=== PATIENT | male | born 1955 | race Caucasian/White ===

== ENCOUNTER 2022-12-31 17:01 | Emergency (ER) | payer OTHER ==
--- NOTE | 2022-12-31 17:16 | EDPHYS ---
Physician Documentation [facility] Name: Chris Baker Age: 67 yrs Sex: Male : 1955 Arrival Date: 12/31/2022 Time: 17:01 Bed IW2 Private MD: ED Physician Reyes Ro HPI: 12/31 17:19 This 67 yrs old Male presents to ER via Wheelchair with complaints of Back Pain. ec2 17:17 Patient arrives today due to concern for low back pain. States that he has been having ec2 progressive back pain for the past week and is having issues with mobility. Patient reports no falls or injuries no trauma, no red flag symptoms. States that he has tried without milligrams of Tylenol without significant improvement in his symptoms.. Historical: - Allergies: 17:15 No Known Allergies; cm10 - PMHx: 17:14 Prostate Cacner; Hypertensive disorder; cm10 - PSHx: 17:14 knee replacement; cm10 - Immunization history:: Adult Immunizations unknown. - Social history:: Smoking status: Patient denies any tobacco usage or history of. ROS: 17:17 Constitutional: as per hpi ec2 Exam: 17:17 Constitutional: GEN: NAD Head: atraumatic Eyes: EOMI Ears: External ears are ec2 normal. CV: regular rate LUNGS: no respiratory distress ABD: non-distended SKIN: no evidence of rashes MSK: Bilateral lower lateral back with muscular tenderness palpation without deformities, no C/T/L-spine tenderness palpation or deformities or crepitus appreciated. Bilateral lower extremities with good range of motion. NEURO: moves all extremities equally Vital Signs: 17:10 BP 161 / 80; Pulse 74; Resp 16 S; Temp 98.2; Pulse Ox 100% on R/A; cm10 17:15 Weight 92.99 kg; Height 5 ft. 11 in. ; Pain 10/10; cm10 17:15 Body Mass Index 28.59 (92.99 kg, 180.34 cm) cm10 17:15 Pain Scale: Adult cm10 MDM: 17:06 Patient medically screened. ec2 17:17 Data reviewed: vital signs. ED course: Patient arrives today due to concern for low ec2 back pain. Examination remarkable for well-appearing nontoxic individual was otherwise in no acute distress. I suspect patient's pain is muscular in nature given the reproducible pain on palpation, I have low clinical suspicion for acute bony fracture or spinal cord pathology given the patient's examination. I considered other process such as bony fracture, spinal cord pathology, kidney pathology. Will discharge home, return precautions given. . Administered Medications: 17:22 Drug: Methocarbamol PO 1000 mg PO once Route: PO; cm10 17:23 Follow up: Response: No adverse reaction cm10 Disposition Summary: 12/31/22 17:16 Discharge Ordered Notes: Location: Home ec2 Condition: Stable ec2 Diagnosis - Low back pain ec2 Discharge Instructions: - Discharge Summary Sheet ec2 - Acute Back Pain, Adult ec2 Forms: - Medication Reconciliation Form ec2 - Thank You Letter ec2 - Antibiotic Education ec2 - Prescription Opioid Use ec2 - Patient Portal Instructions ec2 - Leadership Thank You Letter ec2 Prescriptions: - methocarbamol 500 mg Oral tablet - take 2 tablets ORAL route 4 times per day; 30 tablet; Refills: 0, Product ec2 Selection Permitted Signatures: Radha Mejia RN RN cm10 Reyes Ro MD MD ec2
--- NOTE | 2022-12-31 17:16 | ER ---
Nurse's Notes [facility] Name: Chris Baker Age: 67 yrs Sex: Male : 1955 Arrival Date: 12/31/2022 Time: 17:01 Bed IW2 Private MD: Diagnosis: Low back pain Presentation: 12/31 17:10 Chief complaint: Patient states: low back pain onset 1 week ago. Pt states that the cm10 pain has been progressively getting worse. Pt denies any trauma or injury. Coronavirus screen: Vaccine status: Patient reports receiving the 2nd dose of the covid vaccine. Client denies travel out of the [place] in the last 14 days. Ebola Screen: Patient denies travel to an Ebola-affected area in the 21 days before illness onset. No symptoms or risks identified at this time. Initial Sepsis Screen: Does the patient meet any 2 criteria? No. Patient's initial sepsis screen is negative. Does the patient have a suspected source of infection? No. Patient's initial sepsis screen is negative. Risk Assessment: Do you want to hurt yourself or someone else? Patient reports no desire to harm self or others. Onset of symptoms was December 31, 2022. 17:10 Method Of Arrival: Wheelchair cm10 17:10 Acuity: AIMEE 4 cm10 Triage Assessment: 17:14 General: Appears in no apparent distress. comfortable, Behavior is calm, cooperative. cm10 Pain: Complains of pain in low back area Pain does not radiate. EENT: No deficits noted. No signs and/or symptoms were reported regarding the EENT system. Neuro: No deficits noted. Level of Consciousness is awake, alert, obeys commands, Oriented to person, place, time, situation. Cardiovascular: No deficits noted. Patient's skin is warm and dry. Respiratory: No deficits noted. Airway is patent Respiratory effort is even, unlabored, Respiratory pattern is regular, symmetrical. GI: No deficits noted. No signs and/or symptoms were reported involving the gastrointestinal system. : No deficits noted. No signs and/or symptoms were reported regarding the genitourinary system. Derm: No deficits noted. No signs and/or symptoms reported regarding the dermatologic system. Skin is intact, Skin is pink, warm \T\ dry. Musculoskeletal: Range of motion: intact in all extremities, Reports pain in low back area. Historical: - Allergies: 17:15 No Known Allergies; cm10 - PMHx: 17:14 Prostate Cacner; Hypertensive disorder; cm10 - PSHx: 17:14 knee replacement; cm10 - Immunization history:: Adult Immunizations unknown. - Social history:: Smoking status: Patient denies any tobacco usage or history of. Screenin:22 [facility] ED Fall Risk Assessment (Adult) History of falling in the last 3 months, cm10 including since admission No falls in past 3 months (0 pts) Confusion or Disorientation No (0 pts) Intoxicated or Sedated No (0 pts) Impaired Gait Yes (1 pt) Mobility Assist Device Used Yes (1 pt) Altered Elimination No (0 pt) Score/Fall Risk Level 0 - 2 = Low Risk Oriented to surroundings, Maintained a safe environment, Educated pt \T\ family on fall prevention, incl call for assistance when getting out of bed, Provided non-skid footwear, Hourly rounding (assess needs \T\ fall precautionary measures) done. Abuse screen: Denies threats or abuse. Denies injuries from another. Nutritional screening: No deficits noted. Tuberculosis screening: No symptoms or risk factors identified. Vital Signs: 17:10 BP 161 / 80; Pulse 74; Resp 16 S; Temp 98.2; Pulse Ox 100% on R/A; cm10 17:15 Weight 92.99 kg; Height 5 ft. 11 in. ; Pain 10/10; cm10 17:15 Body Mass Index 28.59 (92.99 kg, 180.34 cm) cm10 17:15 Pain Scale: Adult cm10 ED Course: 17:04 Patient arrived in ED. rg4 17:05 Reyes Ro MD is Attending Physician. ec2 17:14 Triage completed. cm10 17:14 Arm band placed on Patient placed in waiting room. cm10 17:22 Patient has correct armband on for positive identification. Provided Education on: ER cm10 process and procedures. . 17:22 No provider procedures requiring assistance completed. Patient did not have IV access cm10 during this emergency room visit. Administered Medications: 17:22 Drug: Methocarbamol PO 1000 mg PO once Route: PO; cm10 17:23 Follow up: Response: No adverse reaction cm10 Medication: 17:22 VIS not applicable for this client. cm10 Outcome: 17:16 Discharge ordered by . ec2 17:22 Discharged to home via wheelchair, with family, 10 17:22 Condition: good 17:22 Discharge instructions given to patient, Instructed on discharge instructions, follow up and referral plans. medication usage, Demonstrated understanding of instructions, follow-up care, medications, Prescriptions given X 1, 17:24 Patient left the ED. cm10 Signatures: Abril Bueno rg4 Rdaha Mejia RN RN cm10 Reyes Ro MD MD ec2
[2022-12-31] MEDS ORDERED: methocarbamoL 500 MG TAB ONE (17:32)
== END 2022-12-31 17:24 | disposition home or self-care (01) ==
LOC: ER 17:01
DX: M54.50 Low back pain, unspecified (principal); I10 Essential (primary) hypertension

== ENCOUNTER 2023-01-03 10:38 | Emergency (ER) | payer OTHER ==
--- OUTSIDE RECORDS SUMMARY | 2023-01-03 10:43 | XMS REPORT | Continuity of Care Document ---
:1955 Author Organization [facility] t Address [address] [place] [address] Care Team Providers Name Role Phone IVA ALYCE NEHA Primary Care Physician Unavailable Joaquin Burgos Attending Clinician Unavailable Enma, Kirti Attending Clinician Unavailable Ethan Naidu Attending Clinician Unavailable Candelaria Cheney Attending Clinician Unavailable Gregg Reyes Attending Clinician Unavailable FAM RICHARD Attending Clinician Unavailable Jovi Frost Attending Clinician Unavailable Lavelle Early Attending Clinician Juan English Attending Clinician Keith Winkler Attending Clinician KNOW, DOES_NOT Admitting Clinician Unavailable Candelaria Cheney Admitting Clinician Unavailable Gregg Reyes Admitting Clinician Unavailable Payers Payer Name Policy Type Policy Number Effective Date Expiration Date Nenita thomas [employer] MEDICARE HMO [id number] 2021 00:00:00 Problems Condition Condition Condition Status Onset Resolution Last Treating Co mments Source Name Details Category Date Date Treatment Clinician Date Homelessne Homelessne Disease Active 2016-03 H arris ss ss 0-02 Health 00:00: 00 H/O H/O Disease Active 2016-03 Naidu alcohol alcohol 0- Health abuse abuse 00:00: 00 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 6-28 Heal th 00:00: 00 Alcohol Alcohol Disease Active Naidu abuse, in abuse, in 5- Heal th remission- remission- 00:00: since since JuneJune -since - imaging imaging study done study done ( ( cirrhosis cirrhosis ) ) Non-smoker Non-smoker Disease Active H arris 5-10 Health 00:00: 00 Alcoholic Alcoholic Disease Active Fredi ris cirrhosis cirrhosis 3-18 Heal of of 00:00: liver-per liver-per 00 imaging imaging Enlarged Enlarged Disease Active Linda urbano prostate prostate 3-18 Health with lower with lower 00:00: urinary urinary 00 tract tract symptoms symptoms (LUTS) (LUTS) Anxiety Anxiety Disease Active Naidu disorder, disorder, 3- Heal unspecifie unspecifie 00:00: d d 00 Alcohol Alcohol Disease Active Naidu use use 05-10 Health disorder, disorder, 00:00: severe, in severe, in 00 early early remission, remission, dependence dependence HYPERTENSI HYPERTENS Diagnosis Active 2013-032014-02-20 Memoria ON ION Active 04-23 10:43:00 l 00:00: Khoi basilio 4 00 [facility] HAND HAND Diagnosis Active 2013-032014-02-18 Mem oria INJURY INJURY 04-20 08:09:00 l Active 07:00: Antonio 02/17/2014 00 [facility] Cocaine Cocaine Disease Active Naidu abuse in abuse in 2- Health remission remission 00:00: 00 ANKLE PAIN ANKLE Diagnosis Active 2011-032012-01-23 Memoria PAIN 1-15 20:28:00 l Active 12:00: Antonio 01/23/2012 00 [facility] Elevated Elevated Disease Active Harri s ferritin ferritin 8-23 Health 00:00: 00 Hypokalemi Hypokalemi Disease Active H arris a a 10-01 Health 00:00: 00 Decreased Decreased Disease Active Fredi ris platelet platelet 10-01 Health count count 00:00: 00 Anemia, Anemia, Disease Active Evangelista unspecifie unspecifie 10-01 He alth d d 00:00: 00 Obesity, Obesity, Disease Active Overview: Arora rris unspecifie unspecifie 10-01 Formattin Health d d 00:00: g of this 00 note might be different from the original. HEALTH MAINTENAN CE MALE Occult Blood (50+ yearly): Cholest (20+ q 5 years): DM Foot: DM Eye: Microalb: Hga1c: Td (adult 11+):2009 outside ppd: Pneumovax adult: Fluzone: Alcohol Alcohol Disease Active Evangelista abuse abuse 10-01 Health 00:00: 00 HTN HTN Disease Active Evangelista (hypertens (hypertens 10-01 He alth ion) ion) 00:00: 00 Family Family Disease Active Evangelista history of history of 10-01 He alth liver liver 00:00: cancer cancer 00 Family Family Disease Active Evangelista history of history of 10-01 He alth diabetes diabetes 00:00: mellitus mellitus 00 type II type II Unspecifie Unspecifie Disease Active H arris d cataract d cataract 10-01 He alth 00:00: 00 Unspecifie Unspecifie Disease Active H arris d dental d dental 10-01 Health caries caries 00:00: 00 Hypertroph Hypertroph Disease Active H arris y of y of 10-01 Health prostate prostate 00:00: without without 00 urinary urinary obstructio obstructio n and n and other other lower lower urinary urinary tract tract symptoms symptoms (LUTS) (LUTS) gastroc gastroc Disease Active Evangelista 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 10-01 He alth right with right with 00:00: evicence evicence 00 of mild of mild neuropathy neuropathy Gout Gout Problem Resolve 2021-12-12 Sebastian weston (disorder) (disorder) d 22:38:58 l Resolved [place] Problem 12/12/2021 Medical [facility] C61 - C61 - Diagnosis Active 2021-07-05 Mem oria MALIGNANT MALIGNANT 07:42:00 l NEOPLASM NEOPLASM Khoi n OF OF PROSTATE PROSTATE Active [facility] History of Past Illness Condition Condition Condition Status Onset Resolution Last Treating Co mments Source Name Details Category Date Date Treatment Clinician Date Discharge Discharge Problem 2013-032014-02-23 2014-02-23 Memoria Diagnosis: Diagnosis: - 22:01:55 22:01:55 l Hypertensi Hypertensi 06:00: He rmann on on 02/20/2014 02/23/2014 [facility] Discharge Discharge Problem 2013-032014-02-17 2014-02-17 Memoria Diagnosis: Diagnosis: 04-17 04:09:31 04:09:31 l Gout Gout 06:00: Antonio 02/14/2014 00 02/17/2014 [facility] Allergies, Adverse Reactions, Alerts Allergy Allergy Status Severity Reaction(s) Onset Inactive Treating Comm ents Source Name Type Date Date Clinician No Known DA Active U 2021-03 [facility] Drug 1-19 Allergie 00:00: s 00 No Known DA Active U 0 [facility] Drug 7- Allergie 00:00: s 00 No Known DA Active U 2020-0 [facility]ie 07-16 [place] [facility] 00:[facility]: [facility] 00 are [facility] No Known DA Active U 2020-0 [facility] Allergie 07-16 [place] [facility] 00:[facility]: [facility] [address] [facility] Family History Family Member Diagnosis Comments Start Date Stop Date Source Natural mother Cancer [facility] Natural mother Diabetes [facility] Natural sister Psychiatry [facility] Natural father Alcohol/Drug [facility] [place] Natural father Unknown Fam [facility] Social History Social Habit Start Date Stop Date Quantity Comments Source Gender identity [facility] Sexual orientation [facility] Alcohol intake 2021-07-04 2021-07-04 Current [facility] 00:00:00 00:00:00 non-drinker of alcohol (finding) History of Social 2020-10-10 2020-10-10 [facility] function 00:00:00 00:00:00 History [facility] 2017-06-23 2017-06-23 5 [facility] h Alcohol Frequency 00:00:00 00:00:00 History [facility] 2017-06-23 2017-06-23 5 [facility] Alcohol Std Drinks 00:00:00 00:00:00 History SDOH 2017-06-23 2017-06-23 5 [facility] Alcohol Binge 00:00:00 00:00:00 Alcohol Comment 2017-06-23 2017-06-23 4-5 6 packs per Danilo is Health 00:00:00 00:00:00 week Stopped alcohol 06/19/17 Social History 2014-02-18 2014-02-18 [facility] 13:44:41 13:44:41 Sex Ass[birth year] Evangelista Turner alth 00:00:00 00:00:00 Smoking Status Start Date Stop Date Source Never smoked tobacco Evangelista Ybarra Social History 2014-02-14 12:04:32 [facility] Medications Ordered Filled Start Stop Current Ordering Indication Dosage Frequency Signature Comments Components Source Medication Medication Date Date Medication? 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 Amlodipine Yes PO, Daily, M emoria 2-21 0 l 20:00: Refill(s) venlafaxine Yes Moderate 75mg QD Take 1 Naidu (EFFEXOR 4-30 episode of capsule by Health XR) 75 mg 00:00: recurrent mouth extended 00 major daily Take release depressive one half capsule disorder tablet for 4 days and then one full tablet for 4 days and then 1.5 tablets thereafter .. levothyroxi Yes Hypothyroid 100ug QD Take 1 Naidu ne 4-30 ism, tablet by Health (SYNTHROID) 00:00: unspecified mouth 100 mcg 00 type every tablet morning (before breakfast) . pravastatin Yes Hyperlipide 20mg Take 1 Naidu (PRAVACHOL) 4-30 sherice, tablet by Hea lth 20 mg 00:00: unspecified mouth at tablet 00 hyperlipide bedtime sherice type nightly. amLODIPine Yes Essential 5mg QD Take 1 Naidu (NORVASC) 5 4-30 hypertensio tablet by Health mg tablet 00:00: n mouth 00 daily. venlafaxine Yes Moderate 75mg QD Take 1 Naidu (EFFEXOR 4-30 episode of capsule by Health XR) 75 mg 00:00: recurrent mouth extended 00 major daily Take release depressive one half capsule disorder tablet for 4 days and then one full tablet for 4 days and then 1.5 tablets thereafter .. levothyroxi Yes Hypothyroid 100ug QD Take 1 Naidu ne 4-30 ism, tablet by Health (SYNTHROID) 00:00: unspecified mouth 100 mcg 00 type every tablet morning (before breakfast) . pravastatin Yes Hyperlipide 20mg Take 1 Naidu (PRAVACHOL) 4-30 sherice, tablet by Hea l[facility] 20 mg 00:00: unspecified mouth at tablet 00 hyperlipide bedtime sherice type nightly. venlafaxine 2017-0 Yes Moderate 75mg QD Take 1 Naidu (EFFEXOR 4-30 episode of capsule by Health XR) 75 mg 00:00: recurrent mouth extended 00 major daily Take release depressive one half capsule disorder tablet for 4 days and then one full tablet for 4 days and then 1.5 tablets thereafter .. levothyroxi Yes Hypothyroid 100ug QD Take 1 Naidu ne 4-30 ism, tablet by Health (SYNTHROID) 00:00: unspecified mouth 100 mcg 00 type every tablet morning (before breakfast) . pravastatin 0 Yes Hyperlipide 20mg Take 1 Naidu (PRAVACHOL) 4-30 sherice, tablet by Hea lth 20 mg 00:00: unspecified mouth at tablet 00 hyperlipide bedtime sherice type nightly. amLODIPine Yes Essential 5mg QD Take 1 Naidu (NORVASC) 5 4-30 hypertensio tablet by Health mg tablet 00:00: n mouth 00 daily. amLODIPine 2018-0 Yes Essential 5mg QD Take 1 Naidu (NORVASC) 5 4-30 hypertensio tablet by Health mg tablet 00:00: n mouth 00 daily. venlafaxine 2018-0 Yes Moderate 75mg QD Take 1 Naidu (EFFEXOR 4-30 episode of capsule by Health XR) 75 mg 00:00: recurrent mouth extended 00 major daily Take release depressive one half capsule disorder tablet for 4 days and then one full tablet for 4 days and then 1.5 tablets thereafter .. levothyroxi 2018-0 Yes Hypothyroid 100ug QD Take 1 Naidu ne 4-30 ism, tablet by [facility] (SYNTHROID) 00:00: unspecified mouth 100 mcg 00 type every tablet morning (before breakfast) . pravastatin 2018-0 Yes Hyperlipide 20mg Take 1 Naidu (PRAVACHOL) 4-30 sherice, tablet by [facility] lt 20 mg 00:00: unspecified mouth at tablet 00 hyperlipide bedtime sherice type nightly. amLODIPine 2018-0 Yes Essential 5mg QD Take 1 Naidu (NORVASC) 5 4-30 hypertensio tablet by [facility] mg tablet 00:00: n mouth 00 daily. lithium 2018-0 Yes Moderate 300mg Q.5D Take 1 Fredi ris carbonate 4-16 episode of capsule by [facility] (ESKALI) 00:00: recurrent mouth 2 300 mg 00 major times capsule depressive daily disorder (with meals) Take one capsule for 4 days and then one capsule bid thereafter . lisinopril 2018-0 Yes Essential 10mg QD Take 1 Naidu (PRINIVIL) 4-16 hypertensio tablet by [facility] 10 mg 00:00: n mouth tablet 00 daily. lithium 2018-0 Yes Moderate 300mg Q.5D Take 1 Fredi ris carbonate 4-16 episode of capsule by [employer] (ESKALI) 00:00: recurrent mouth 2 300 mg 00 major times capsule depressive daily disorder (with meals) Take one capsule for 4 days and then one capsule bid thereafter . lisinopril 2018-0 Yes Essential 10mg QD Take 1 Naidu (PRINIVIL) 4-16 hypertensio tablet by [facility] 10 mg 00:00: n mouth tablet 00 daily. lithium 2018-0 Yes Moderate 300mg Q.5D Take 1 Fredi ris carbonate 4-16 episode of capsule by [employer] (ESKALITH) 00:00: recurrent mouth 2 300 mg 00 major times capsule depressive daily disorder (with meals) Take one capsule for 4 days and then one capsule bid thereafter . lisinopril Yes Essential 10mg QD Take 1 Naidu (PRINIVIL) 4-16 hypertensio tablet by [facility] 10 mg 00:00: n mouth tablet 00 daily. lithium Yes Moderate 300mg Q.5D Take 1 Fredi ris carbonate 4-16 episode of capsule by [facility] ([facility]) 00:00: recurrent mouth 2 300 mg 00 major times capsule depressive daily disorder (with meals) Take one capsule for 4 days and then one capsule bid thereafter . lisinopril Yes Essential 10mg QD Take 1 Naidu (PRINIVIL) 4-16 hypertensio tablet by [facility] 10 mg 00:00: n mouth tablet 00 daily. metoprolol 2013-03 Yes 25 mg = 1 Me moria tartrate 25 2-14 tab, PO, l mg oral 15:59: BID, # 60 Polly nn tablet 00 tab, 0 Refill(s) Amlodipine 2013-03 Yes 5 mg = 1 Mem oria 5 MG Oral 2-14 tab, PO, l Tablet 15:58: Daily, # Antonio [Norvasc] 00 30 tab, 0 Refill(s) Clonidine 2013-03 No Notes: Memori a 2-14 (Same As: l 15:01: Catapres) Amlodipine 2013-03 No Notes: Memor ia 2-14 (Same as: l 13:54: Norvasc) Colchicine 2013-03 Yes 0.6 mg, Sebastian weston 0.6 MG Oral 2-08 PO, Daily, l Tablet 11:48: # 3 caplet, 0 Refill(s) Acetaminoph 2013-03 No Notes: Sebastian weston en 325 MG / 2-08 (Same as: l Hydrocodone 11:46: [place] Polly nn Bitartrate 00 325/5) Do 5 MG Oral not exceed Tablet 4gm/day of acetaminop hen. [place] 5/325 2011-03 Yes [place] D 1-2 tab, Memoria oral tablet 1-16 Jaquan PO, Q4-6H, l 01:58: PRN, 15 [place] 40 tab, Pain, Substituti on Allowed, Maintenanc e Bactrim DS 2011-03 Yes Nayla B 2 tab, PO, Memoria oral tablet 1-16 Ryan BID, 40 l 01:58: Antonio clark 37 Substituti on Allowed, Maintenanc e Ultram 50 2011-03 No Nayla B 50 mg, 1 Memoria mg oral 1-16 Ryan tab, l tablet 01:11: Route: PO, Polly nn 00 Drug form: TAB, ONCE, Dosing Weight 104.545, kg, PRN Pain, Start date: 01/23/12 19:11:00 ibuprofen 2011-03 Yes Substituti Me moria 1-16 on Allowed l 00:41: Antonio 23 naproxen 2011-03 Yes Substituti Mem oria 1-16 on Allowed l 00:41: Antonio 19 Tylenol 2011-03 Yes Substituti Sebastian weston 1-16 on Allowed l 00:41: Antonio 14 Immunizations Ordered Immunization Filled Immunization Date Status Commen ts Source Name Name PPD 2016-12-09 Completed [facility] 00:00:00 PPD 2016-12-09 Completed [facility] 00:00:00 PPD 2016-12-09 Completed [facility] 00:00:00 PPD 2012-05-07 Completed [facility] 00:00:00 PPD 2012-05-07 Completed [facility] 00:00:00 PPD 2012-05-07 Completed [facility] 00:00:00 PPD 2012-05-04 Completed [facility] 00:00:00 PPD 2012-05-04 Completed [facility] 00:00:00 PPD 2012-05-04 Completed [facility] 00:00:00 PPV 23 Pneumococcal 2011-10-02 Completed Antavo Polysaccaride 00:00:00 PPV 23 Pneumococcal 2011-10-02 Completed Antavo Polysaccaride 00:00:00 PPV 23 Pneumococcal 2011-10-02 Completed Antavo Polysaccaride 00:00:00 PPD 2011-04-08 Completed [facility] 00:00:00 PPD 2011-04-08 Completed [facility] 00:00:00 PPD 2011-04-08 Completed [facility] 00:00:00 PPD Unknown Completed [facility] PPV 23 Pneumococcal Unknown Completed Antavo Polysaccaride PPD Unknown Completed [facility] PPD Unknown Completed [facility] PPD Unknown Completed [facility] Vital Signs Vital Name Observation Time Observation Value Comments Source Heart Rate 2021-06-25 13:19:00 [facility] [place] Respitory Rate 2021-06-25 13:19:00 Memori al Antonio Systolic (mm Hg) 2021-06-25 13:19:00 Sebastian rial Antonio Diastolic (mm Hg) 2021-06-25 13:19:00 Mem orial [place] Weight 2021-06-25 13:19:00 [facility] [place] Heart Rate 2021-06-05 14:37:00 [facility] [place] Respitory Rate 2021-06-05 14:37:00 Memori al [place] Systolic (mm Hg) 2021-06-05 14:37:00 Sebastian rial Antonio Diastolic (mm Hg) 2021-06-05 14:37:00 Mem orial [place] Heart Rate 2021-04-30 19:49:00 [facility] [place] Respitory Rate 2021-04-30 19:49:00 Memori al [place] Systolic (mm Hg) 2021-04-30 19:49:00 Sebastian rial [place] Diastolic (mm Hg) 2021-04-30 19:49:00 Mem orial Antonio Height 2021-04-30 19:49:00 172.72 cm [facility] [place] Weight 2021-04-30 19:49:00 [facility] [place] BMI Calculated 2021-04-30 19:49:00 Memori al Antonio Diastolic (mm Hg) 2014-02-20 16:31:00 Mem orial [place] Heart Rate 2014-02-20 16:31:00 [facility] Antonio Systolic (mm Hg) 2014-02-20 16:31:00 Sebastian rial Antonio Respitory Rate 2014-02-20 15:52:00 Memori al [place] Systolic (mm Hg) 2014-02-20 15:52:00 Sebastian rial [place] Diastolic (mm Hg) 2014-02-20 15:52:00 Mem orial [place] Heart Rate 2014-02-20 15:52:00 [facility] [place] Heart Rate 2014-02-20 15:08:00 [facility] [place] Systolic (mm Hg) 2014-02-20 15:08:00 Sebastian rial Antonio Diastolic (mm Hg) 2014-02-20 15:08:00 Mem orial [place] BMI Calculated 2014-02-20 13:30:00 Memori al Antonio Weight 2014-02-20 13:30:00 [facility] [place] Height 2014-02-20 13:30:00 177.8 cm [facility] [place] Temperature Oral (F) 2014-02-20 13:30:00 97.7 F [facility] [place] Respitory Rate 2014-02-20 13:30:00 Memori al Antonio Respitory Rate 2014-02-20 13:19:00 Memori al [place] Temperature Oral (F) 2014-02-20 13:19:00 98.4 F [facility] [place] Height 2014-02-14 11:29:00 180.34 cm [facility] [place] Weight 2014-02-14 11:29:00 [facility] [place] BMI Calculated 2014-02-14 11:29:00 Memori al [place] Systolic (mm Hg) 2014-02-14 11:29:00 Sebastian rial Antonio Heart Rate 2014-02-14 11:29:00 [facility] [place] Diastolic (mm Hg) 2014-02-14 11:29:00 Mem orial Antonio Respitory Rate 2014-02-14 11:29:00 Memori al [place] Temperature Oral (F) 2014-02-14 11:29:00 97.7 F [facility] [place] Height 2012-01-23 23:22:00 172.72 cm [facility] [place] Weight 2012-01-23 23:22:00 [facility] Procedures Procedure Date / Time Performing Clinician Source Performed [id number] 2022-08-15 00:00:00 IND[facility] Biopsy, prostate; 2021-06-05 15:15[facility] or multiple, any approach Measurement of 2021-04-30 20:07:00 [facility] post-voiding residual urine and/or bladder capacity by ultrasound, non-imaging Hernia repair [facility] Plan of Care Planned Activity Planned Date Details Comments Source Future Scheduled Test 2022-12-08 IMM Influenza Seasonal [facility] 00:00:00 (>/= 19 yrs) [code = IMM Influenza Seasonal (>/= 19 yrs)] Future Scheduled Test 2022-11-08 IMM Influenza Seasonal [facility] 00:00:00 (>/= 19 yrs) [code = IMM Influenza Seasonal (>/= 19 yrs)] Future Scheduled Test 2021-12-08 IMM Influenza Seasonal [facility] 00:00:00 (>/= 19 yrs) [code = IMM Influenza Seasonal (>/= 19 yrs)] Future Scheduled Test 2021-12-08 IMM Influenza Seasonal [facility] 00:00:00 (>/= 19 yrs) [code = IMM Influenza Seasonal (>/= 19 yrs)] Future Scheduled Test 2018 Imm Pneumococcal 65+ (2 [facility] 00:00:00 - PCV) [code = Imm Pneumococcal 65+ (2 - PCV)] Future Scheduled Test 2016-05-10 Screening for malignant [facility] 00:00:00 neoplasm of colon (procedure) [code = 451200708] Future Scheduled Test 2016-05-10 Screening for malignant [facility] 00:00:00 neoplasm of colon (procedure) [code = 094819302] Future Scheduled Test 2016-05-10 Screening for malignant [facility] 00:00:00 neoplasm of colon (procedure) [code = 439526714] Future Scheduled Test 2016-05-10 Screening for malignant [facility] 00:00:00 neoplasm of colon (procedure) [code = 050038281] Future Scheduled Test 2012-10-01 Imm Pneumococcal 65+ (2 [facility] 00:00:00 - PCV) [code = Imm Pneumococcal 65+ (2 - PCV)] Future Scheduled Test 2012-10-01 Imm Pneumococcal 65+ (2 [facility] 00:00:00 - PCV) [code = Imm Pneumococcal 65+ (2 - PCV)] Future Scheduled Test 2012-10-01 Imm Pneumococcal 65+ (2 [facility] 00:00:00 - PCV) [code = Imm Pneumococcal 65+ (2 - PCV)] Future Scheduled Test 1955 COVID-19 Vaccine (#1) [facility] 00:00:00 [code = COVID-19 Vaccine (#1)] Future Scheduled Test 1955 COVID-19 Vaccine (#1) [facility] 00:00:00 [code = COVID-19 Vaccine (#1)] Future Scheduled Test 1955 COVID-19 Vaccine (#1) [facility] 00:00:00 [code = COVID-19 Vaccine (#1)] Future Scheduled Test 1955 COVID-19 Vaccine (#1) [facility] 00:00:00 [code = COVID-19 Vaccine (#1)] Future Scheduled Test 1955 Fluoride Varnish [code [facility] 00:00:00 = Fluoride Varnish] Encounters Start End Encounter Admission Attending Care Care Encounter Source Date/Time Date/Time Type Type Clinicians Facility Department ID 2022-10-16 Outpatient [facility] [id number] Common 16:37:01 [id number] [facility] 2022-07-02 Outpatient [facility] [id number] [place] 14:40:14 [id number] [facility] 2022-06-18 Outpatient [facility] [id number] [place] 12:44:27 [id number] [facility] 2022-05-29 Inpatient TRACY Burgos YENPM EDA [id number] [facility] 14:00:[address] 2022-05-10 Inpatient Elective [place], Kirti [facility] [id number] [facility] 09:00:00 00 2021-09-27 Inpatient Elective Naidu, [facility] [id number] [facility] 08:00:00 Ethan 08 2021-01-08 Inpatient Naidu, [facility] [id number] [facility] 10:00:00 Ethan 49 2020-12-04 Inpatient Naidu, [facility] [id number] [facility] 10:00:00 Ethan 93 2020-07-16 Inpatient HCANC HCANC [id number] [facility] 11:45:24 13 [facility] 2020-01-08 Inpatient 3 Shravan, [facility] [id number] [facility] 21:00:03 [facility] 2022-08-15 2022-08-22 Inpatient TRACY Reyes [facility] [id number] [facility] 14:52:00 17:02:00 Gregg Roberto [facility] 2022-08-12 2022-08-12 Outpatient AubreyYENNW REF [id number] [facility] 14:03:00 14:03:00 Joaquin 14 [facility] 2022-07-03 2022-07-03 Outpatient JOSE MANUELFAM [facility] [id number] [place] 08:30:00 08:30:00 [facility] 2022-05-16 2022-05-16 Outpatient Elective Evangelista [facility] [id number] 10:33:00 10:34:00 Ethan 12 2022-01-26 2022-01-26 Emergency Emergency Guirges, [facility] [id number] [facility] 19:13:00 22:45:00 Jovi 54 2022-01-26 2022-01-26 Emergency [facility] [id number] [facility] 19:13:00 19:13:00 54 2022-01-23 2022-01-24 Outpatient Elective [place], Kirti [facility] [id number] [facility] 09:45:00 07:20:00 41 2022-01-07 2022-01-07 Outpatient Elective [place], Kirti [facility] [id number] [facility] 10:30:00 23:59:00 19 2021-12-13 2021-12-13 Outpatient Elective [place], Kirti [facility] [id number] [facility] 11:46:00 11:47:00 98 2021-12-10 2021-12-10 Ambulatory nullFlavo [facility] [id number] Memoria 19:15:00 19:15:00 Pre-Reg r Urology 06 l [facility] 2021-12-10 2021-12-10 Outpatient MHIE BROOKS [facility] [id number] Memoria 14:15:00 14:15:00 06 harriett [place] 2021-12-10 2021-12-10 Outpatient Lavelle Early [facility] [id number] 14:15:00 14:15:00 S 06 2021-11-22 2021-12-07 Outpatient Elective Nor[place], Kirti [facility] JM0 [id number] [facility] 11:30:00 23:59:00 97 2021-11-09 2021-11-09 Outpatient [facility] [id number] [facility] 11:30:00 11:30:00 97 2021-11-06 2021-11-07 Outpatient Elective [place], Kirti [facility] JM0 [id number] [facility] 11:30:00 23:59:00 11 2021-10-04 2021-10-04 Outpatient Elective Naidu, [facility] [id number] [facility] 06:22:00 20:49:00 Ethan 95 2021-10-04 2021-10-04 Outpatient Elective Naidu, [facility] [id number] [facility] 06:22:00 06:22:00 Ethan 95 2021-09-28 2021-09-28 Outpatient Elective Naidu, [facility] [id number] [facility] 11:11:00 11:12:00 Ethan 87 2021-09-28 2021-09-28 Outpatient Elective Naidu, [facility] [id number] [facility] 11:11:00 11:11:00 Ethan 87 2021-09-06 2021-09-06 Outpatient Elective [place], Kirti [facility] JM0 [id number] [facility] 08:21:00 23:59:00 78 2021-08-08 2021-08-08 Ambulatory nullFlavo [facility] [id number] Memoria 19:45:00 19:45:00 Pre-Reg r Urology 05 l [facility] 2021-08-08 2021-08-08 Outpatient Lavelle Early [facility] [id number] 14:45:00 14:45:00 S 05 2021-07-24 2021-07-24 Outpatient MHIE MHIE [id number] Memoria 09:00:00 09:00:00 05 harriett Green[place] 2021-07-09 2021-07-10 Between nullFlavo [facility] [id number] Memoria 16:04:58 16:04:58 Visit r Urology 07 l [facility] 2021-07-09 2021-07-10 Outpatient MHMG [facility] [id number] 11:04:58 11:04:58 07 2021-07-06 2021-07-07 Between nullFlavo [facility] [id number] Memoria 19:32:19 19:32:19 Visit r Urology 06 l [facility] 2021-07-06 2021-07-07 Outpatient MHMG MHMG [id number] 14:32:19 14:32:19 06 2021-07-05 2021-07-06 Outpt Diag nullFlavo [facility] [id number] Memoria 12:36:00 04:59:00 Services r Outpatient 01 [facility] 2021-07-05 2021-07-05 Outpatient Lavelle Early 2.16.840. 2.16.840. 1. [id number] 07:36:00 23:59:00 S [id number]. [id number] 3.615.30 5.30 2021-06-25 2021-06-26 Outpatient nullFlavo [facility] [id number] Memoria 13:45:00 04:59:59 r Urology 04 l [facility] 2021-06-25 2021-06-25 Outpatient Lavelle Early MG [facility] [id number] 08:45:00 23:59:59 S 2021-06-25 2021-06-25 Outpatient MHIE MHIE [id number] Memoria 08:45:00 08:45:00 04 [facility] 2021-06-05 2021-06-06 Outpatient nullFlavo [facility] [id number] Memoria 14:45:00 04:59:59 r Urology 03 l [facility] 2021-06-05 2021-06-06 Outpatient nullFlavo [facility] [id number] Memoria 14:45:00 04:59:59 r Urology 01 l [facility] 2021-06-05 2021-06-05 Outpatient Lavelle Early MG [facility] [id number] 09:45:00 23:59:59 S 2021-06-05 2021-06-05 Outpatient Lavelle Early MG [facility] [id number] 09:45:00 23:59:59 S 2021-06-05 2021-06-05 Outpatient MHIE MHIE [id number] Memoria 09:45:00 09:45:00 03 [facility] 2021-06-05 2021-06-05 Outpatient MHIE MHIE [id number] Memoria 09:45:00 09:45:00 01 [facility] 2021-05-30 2021-05-30 Ambulatory nullFlavo [facility] [id number] Memoria 19:15:00 19:15:00 Pre-Reg r Urology 02 l [facility] 2021-05-30 2021-05-30 Outpatient MHIE MHIE [id number] Memoria 14:15:00 14:15:00 02 l [place] 2021-05-30 2021-05-30 Outpatient MHMG MHMG [id number] 14:15:00 14:15:00 02 2021-04-30 2021-05-01 Outpatient nullFlavo [facility] [id number] Memoria 20:15:00 05:59:59 r Urology 00 l [facility] [place] [facility] 2021-04-30 2021-04-30 Outpatient SharathLavelle MHMG [facility] [id number] 14:15:00 23:59:59 S 00 2021-04-30 2021-04-30 Outpatient MHIE MHIE [id number] Memoria 14:15:00 14:15:00 00 l [place] 2020-09-28 2020-09-28 Outpatient Elective CALLIE Naid[place]ahir [facility] [id number] [facility] 09:13:00 09:13:00 Ethan Madden 2018-01-14 2018-01-14 Outpatient [facility] [id number] [facility] 00:00:00 00:00:00 2017-08-06 2017-08-06 Outpatient [facility] [id number] [facility] 00:00:00 00:00:00 2017-07-23 2017-07-23 Outpatient [facility] [id number] [facility] 00:00:00 00:00:00 2017-07-12 2017-07-12 Outpatient [facility] [id number] [facility] 00:00:00 00:00:00 2017-07-07 2017-07-07 Outpatient [facility] [id number] [facility] 08:10:36 08:10:36 2017-06-30 2017-06-30 Outpatient [facility] [id number] [facility] 00:00:00 00:00:00 2017-06-25 2017-06-25 Outpatient [facility] [id number] [facility]HH 09:59:03 09:59:03 2017-06-23 2017-06-23 Outpatient [facility] [id number] [facility]HH 13:25:26 13:25:26 2017-06-23 2017-06-23 Outpatient [facility] [id number] [facility]HH 11:25:03 11:25:03 2017-01-14 2017-01-14 [id number] 00:00:00 00:00:00 2016-12-24 2016-12-24 Outpatient [facility] HH [id number] [facility]HH 00:00:00 00:00:00 2016-12-23 2016-12-23 Outpatient HHH [facility]HH [id number] [facility]HH 00:00:00 00:00:00 2016-12-23 2016-12-23 Outpatient [facility] [id number] HHH 00:00:00 00:00:00 2016-12-18 2016-12-18 Outpatient [facility] [id number] HHH 00:00:00 00:00:00 2016-12-17 2016-12-17 Outpatient [facility] HH [id number] HHH 14:15:33 14:15:33 2016-12-17 2016-12-17 Outpatient [facility]HH HHH [id number] HHH 13:01:52 13:01:52 2016-12-17 2016-12-17 Outpatient [facility] HH [id number] HHH 10:23:04 10:23:04 2016-12-13 2016-12-13 Outpatient [facility] HH [id number] HHH 08:30:52 08:30:52 2016-12-12 2016-12-12 Outpatient [facility] HH [id number] [facility]HH 00:00:00 00:00:00 2016-12-11 2016-12-11 Outpatient [facility] HH [id number] HHH 09:50:21 09:50:21 2016-12-11 2016-12-11 Outpatient [facility] [id number] HHH 08:17:04 08:17:04 2016-12-09 2016-12-09 Outpatient [facility] HH [id number] HHH 11:25:01 11:25:01 2016-12-09 2016-12-09 Outpatient [facility] HH [id number] HHH 10:03:35 10:03:35 2014-02-20 2014-02-20 [facility] [id number] Memoria 13:16:00 16:33:[address] 2014-02-20 2014-02-20 Outpatient Tameka, 2.16.840. 2.16.840.1. [id number] 07:16:00 10:33:00 Juan [id number]. [id number] 03 3.615.0.1 5.0.307 02 5185-12-14 2014-02-20 Outpatient Tameka, 2.16.840. 2.16.840.1. [id number] 07:16:00 10:33:00 Juan [id number]. [id number] 03 3.615.0.1 5.0.786 95 4678-12-14 2014-02-20 Outpatient Tameka, 2.16.840. 2.16.840.1. [id number] 07:16:00 10:33:00 Juan [id number]. [id number] 03 3.615.0.1 5.0.186 71 6615-12-08 2014-02-14 [facility] [id number] Memoria 11:26:00 12:07:00 Emergency r [place] 01 l [facility] 2014-02-14 2014-02-14 Outpatient Cathi, 2.16.840. 2.16.840.1. [id number] 05:26:00 06:07:00 Keith [id number]. [id number] Joan 3.615.0.1 5.0.004 56 0429-11-15 2012-01-23 [facility] 35 [id number] Memoria 17:14:00 20:18:00 r [facility] 00 l Antonio Results Test Description Test Time Test Comments Results Result [facility] e Comments - DUP VEIN [facility] 2022-08-22 12:29:00 [facility] 1955 Sex: M Chance soria Name: JESSI FERNANDO Unit No: [id number] EXAMS: CPT CODE: [id number] [place] [id number] EXAM: Left LOWER EXTREMITY VENOUS DOPPLER ULTRASOUND HISTORY: LEFT SWOLLEN LEG COMPARISON: No relevant prior. Location: TECHNIQUE: Realtime hand-held grayscale, color Doppler and pulsed Doppler ultrasound examination of the deep venous system of the left lower extremity was performed from the common femoral vein to the posterior tibial vein. FINDINGS: Left lower extremity: There is normal wall compression, augmentation, phasic flow and spontaneous flow in the common femoral, and segments of the left femoral vein. Unable to evaluate the left popliteal vein and posterior tibial vein at the level of the knee due to overlying bandage. The posterior tibial vein is patent at the level of the ankle. IMPRESSION: No evidence of DVT above the level of the left knee. Evaluation at the level of the knee/calf is limited due to overlying bandage. at 1229 Reported and signed by: José Luis Gonzalez MD CC: Candelaria Cheney MD; Gregg Reyes MD Technologist: Kathi Verduzco Probe: Trscr Dt/Tm: 08/22/2022 (1229) by:[email or web address] Printed Date/Time: 08/22/2022 (4182) Name: JESSI FERNANDO [facility] Phys: NAT. - Gregg Reyes MD [address] : 1955 Age: 67 Sex: [place] [address] Loc: [id number] 1 Exam Date: 08/22/2022 Status: ADM IN PH: FAX: PAGE 1 Signed Report HGB HCT 2022-08-18 06:23:00 Test Item Value Reference Range Interpretation Comme nts HEMOGLOBIN (test code = HGB) 9.0 g/dL 14.0-18.0 L HEMATOCRIT (test code = HCT) 25.8 % 42.0-52.0 L HGB [id number] 06:27:00 Test Item Value Reference Range Interpretation Comments HEMOGLOBIN (test code = HGB) 9.6 g/dL 14.0-18.0 L HEMATOCRIT (test code = HCT) 28.2 % 42.0-52.0 L BASIC METABOLIC [id number] 06:56:00 Test Item Value Reference Range Interpretation Comments SODIUM (test code 137 mmol/L 136-145 N = NA) POTASSIUM (test 4.2 mmol/L 3.5-5.1 N code = K) CHLORIDE (test 105 mmol/l 98-107 N code = CL) CARBON DIOXIDE 24 mmol/L 20-31 N (test code = CO2) GLUCOSE (test code 149 ng/dL 74-106 H = GLU) BLOOD UREA 19 mg/dL 9-23 N NITROGEN (test code = BUN) GLOMERULAR >=60 max >60 The Glomerular FILTRATION RATE estimate mL/min Filtratio n Rate is a (test code = GFR) calculated parameterbased on serum Creatinin e, patient age and sex. GFR valuesless than 60 mL/min/1.73 square meters are alfonso cative ofChronic Kidne y Disease. Values less than 15 mL/min/1.73squa re meters indicate Kidney failure. The calculation for GFR is based on the CK D-EPI (2020) calculat ion. This formulais race indifferent and is the recommended formula for GFR by the National Kidney Foundation for Adults.The GFR will not calculate i f the sex is unknown or if thepatient's ag e is <18 years. CREATININE (test 1.00 mg/dL 0.70-1.30 N code = CREAT) CALCIUM (test code 8.2 mg/dL 8.7-10.4 L = CA) CBC W/AUTO [id number] 06:54:00 Test Item Value Reference Range Interpretation Comments WHITE BLOOD CELL (test code = 10.3 x10 3/uL 4.8-10.8 N WBC) RED BLOOD CELL (test code = 3.70 x10 6/uL 4.70-6.10 L RBC) HEMOGLOBIN (test code = HGB) 11.1 g/dL 14.0-18.0 L HEMATOCRIT (test code = HCT) 32.9 % 42.0-52.0 L MEAN CELL VOLUME (test code = 88.9 fL 80.0-94.0 N MCV) MEAN CELL HGB (test code = MCH) 30.0 pg 27-31 N MEAN CELL HGB CONCENTRATION 33.7 G/DL 33-36.5 N (test code = MCHC) RED CELL DISTRIBUTION WIDTH 13.9 % 12.9-16.9 N (test code = RDW) PLATELET COUNT (test code = 172 x10 3/uL 150-440 N PLT) MEAN PLATELET VOLUME (test code 11.3 fL 8.9-12.4 N = MPV) NEUTROPHIL % (test code = NT%) 81.4 % 42.2-75.2 H LYMPHOCYTE % (test code = LY%) 8.7 % 20.5-51.1 L MONOCYTE % (test code = MO%) 9.4 % 1.7-9.3 H EOSINOPHIL % (test code = EO%) 0.0 % 0.0-7.0 N BASOPHIL % (test code = BA%) 0.1 % 0-2.5 N NEUTROPHIL # (test code = NT#) 8.36 x10 3/uL 1.80-7.70 H LYMPHOCYTE # (test code = LY#) 0.89 x10 3/uL 1.00-4.80 L MONOCYTE # (test code = MO#) 0.96 x10 3/uL 0.00-0.80 H EOSINOPHIL # (test code = EO#) 0.00 x10 3/uL 0.00-0.45 N BASOPHIL # (test code = BA#) 0.01 x10 3/uL 0.0-0.20 N - XR KNEE 1 OR 2 V [id number] 00:25:00 [facility] : 1955 Sex: MPatient Name: JESSI FERNANDO Unit No: [id number] EXAMS: CPT CODE: [id number] XR KNEE 1 OR 2 [place] LT [address] EXAM: - XR KNEE 1 OR 2 V LT HISTORY: COMPARISON: None available time of interpretation. FINDINGS: AP and lateral view of the left knee is provided. Total knee arthroplasty is seen which appears intact and fully engaged. There is no periprosthetic fracture. Skin keith, soft tissue gas and joint effusion are expected postoperative findings. IMPRESSION: 1. Status post total knee arthroplasty as above. at 0025 Reported and signed by: MILLICENT BOYD M.D. CC: Joaquin Burgos MD; Candelaria Cheney MD Technologist: Savanah Ramirez Time: DAP (Gy m2): Air Kerma (mGy): Trscr Dt/Tm: 08/16/2022 (002) by:[email or web address] Printed Date/Time: 08/16/2022 (0028) Name: JESSI FERNANDO [facility] Phys: Joaquin Marks MD [address] : 1955 Age: 67 Sex: [place] [address] Loc: [id number] Exam Date: 08/15/2022 Status: ADM IN PH: FAX: PAGE 1 Signed Report- XR CHEST 2 [id number] 15:25:00 [facility] : 1955 Sex: MPatient Name: JESSI FERNANDO Unit No: [id number] EXAMS: CPT CODE: [id number] XR CHEST2 V 75158 CHEST, 2 VIEWS LOCATION: A1 HISTORY: Preoperative evaluation. 2 views of the chest were obtained at 12:57 PM. No prior exams are available for comparison. FINDINGS: The lungs are clear of acute infiltrate or mass. The heart and pulmonary vasculature are within normal limits. No pleural effusion is present. No free air is identified under the diaphragm. No acute skeletal abnormality is seen. IMPRESSION: No acute thoracic abnormality. at 1525 Reported and signed by: Dalton Walters Jr, MD CC: Joaquin Burgos MD; Candelaria godinez MD Technologist: Willie Ramirez Time: DAP (Gy m2): Air Kerma (mGy): Trscr Dt/Tm: 08/12/2022(1525) by:Beata Printed Date/Time: 08/12/2022 (1528) Name: JESSI FERNANDO YOVANI [facility] Phys: Joaquin Marks MD [address] : 1955 Age: 67 Sex: [place] [address] Loc: P.SRG Exam Date: 08/12/2022 Status: PRE SD PH: FAX: PAGE 1 Signed ReportCBC W/AUTO [id number] 13:47:00 Test Item Value Reference Range Interpretation Comments WHITE BLOOD CELL (test code = 5.5 x10 3/uL 4.8-10.8 N WBC) RED BLOOD CELL (test code = 3.88 x10 6/uL 4.70-6.10 L RBC) HEMOGLOBIN (test code = HGB) 11.7 g/dL 14.0-18.0 L HEMATOCRIT (test code = HCT) 34.6 % 42.0-52.0 L MEAN CELL VOLUME (test code = 89.2 fL 80.0-94.0 N MCV) MEAN CELL HGB (test code = MCH) 30.2 pg 27-31 N MEAN CELL HGB CONCENTRATION 33.8 G/DL 33-36.5 N (test code = MCHC) RED CELL DISTRIBUTION WIDTH 13.8 % 12.9-16.9 N (test code = RDW) PLATELET COUNT (test code = 146 x10 3/uL 150-440 L PLT) MEAN PLATELET VOLUME (test code 11.3 fL 8.9-12.4 N = MPV) NEUTROPHIL % (test code = NT%) 64.9 % 42.2-75.2 N LYMPHOCYTE % (test code = LY%) 19.1 % 20.5-51.1 L MONOCYTE % (test code = MO%) 11.8 % 1.7-9.3 H EOSINOPHIL % (test code = EO%) 3.6 % 0.0-7.0 N BASOPHIL % (test code = BA%) 0.4 % 0-2.5 N NEUTROPHIL # (test code = NT#) 3.57 x10 3/uL 1.80-7.70 N LYMPHOCYTE # (test code = LY#) 1.05 x10 3/uL 1.00-4.80 N MONOCYTE # (test code = MO#) 0.65 x10 3/uL 0.00-0.80 N EOSINOPHIL # (test code = EO#) 0.20 x10 3/uL 0.00-0.45 N BASOPHIL # (test code = BA#) 0.02 x10 3/uL 0.0-0.20 N WINTROBE SED [id number] 13:47:00 Test Item Value Reference Range Interpretation Comments WINTROBE SED RATE (test code = 38 mm/hr 0-7 H SEDWI) BASIC METABOLIC [id number] 12:48:00 Test Item Value Reference Range Interpretation Comments SODIUM (test code 141 mmol/L 136-145 N = NA) POTASSIUM (test 4.2 mmol/L 3.5-5.1 N code = K) CHLORIDE (test 106 mmol/l 98-107 N code = CL) CARBON DIOXIDE 27 mmol/L 20-31 N (test code = CO2) GLUCOSE (test code 103 ng/dL 74-106 N = GLU) BLOOD UREA 18 mg/dL 9-23 N NITROGEN (test code = BUN) GLOMERULAR >=60 max >60 The Glomerular FILTRATION RATE estimate mL/min Filtratio n Rate is a (test code = GFR) calculated parameterbased on serum Creatinin e, patient age and sex. GFR valuesless than 60 mL/min/1.73 square meters are alfonso cative ofChronic Kidne y Disease. Values less than 15 mL/min/1.73squa re meters indicate Kidney failure. The calculation for GFR is based on the CK D-EPI (2020) calculat ion. This formulais race indifferent and is the recommended formula for GFR by the National Kidney Foundation for Adults.The GFR will not calculate i f the sex is unknown or if thepatient's ag e is <18 years. CREATININE (test 0.70 mg/dL 0.70-1.30 N code = CREAT) CALCIUM (test code 8.7 mg/dL 8.7-10.4 N = CA) C REACTIVE [id number] 12:48:00 Test Item Value Reference Range Interpretation Comments C REACTIVE PROTEIN (test code = CRP) 14 mg/L <10 H UA, Urinalysis Rflx [id number] 20:15:00 Test Item Value Reference Range Interpretation Comments Color,Urine (test code = UCOL) Yellow Yellow Clarity,Urine (test code = Clear Clear UCLAR) Ph, Urine (test code = UPH) 5.5 5.0-9.0 N Specific [place],Urine (test 1.025 1.005-1.030 N code = USG) Blood,Urine (test code = UBLD) Negative mg/dL Negative Protein,Urine (test code = Negative mg/dL Negative UPRO) Glucose,Urine (UA) (test code Negative mg/dL Negative = UGLU) Ketones,Urine (test code = Trace mg/dL Negative A UKET) Nitrate,Urine (test code = Negative Negative UNIT) Bilirubin,Urine (test code = Negative mg/dL Negative UBIL) Urobilinogen,Urine (test code 1.0 E.U./dL Normal = UURO) Leukocyte Esterase,Urine (test Negative mg/dL Negative code = ULEU) Complete Blood Count Auto [id number] 20:15:00 Test Item Value Reference Range Interpretation Comments White Blood Count (test code = 3.4 x10 3/uL 4.4-10.5 L WBCT) Red Blood Count (test code = 3.62 x10 6/uL 4.10-5.70 L RBC) Hemoglobin (test code = HGBT) 11.1 g/dL 13.4-17.4 L Hematocrit (test code = HCTT) 33.7 % 38.7-52.0 L Mean Corpuscular Volume (test 93.10 fL 80.00-100.00 N code = MCV) Mean Corpuscular Hemoglobin 30.7 pg 27.0-32.5 N (test code = MCH) Mean Corpuscular HGB Conc 32.90 g/dL 32.00-37.50 N (test code = MCHC) RDW Coefficient of Variation 13.3 % 11.5-14.5 N (test code = RDWCV) Platelet Count (test code = 137.0 x10 3/uL 140.0-440.0 L PLTT) Mean Platelet Volume (test 11.2 fL code = MPV) nRBC Abs (test code = NRBCA) 0 nRBC Pct (test code = NRBCP) 0 % Basic Metabolic [id number] 20:15:00 Test Item Value Reference Range Interpretation Comments SODIUM (test code = 143.0 mmol/L 136.0-145.0 N NA) Potassium,K (test 4.2 mmol/L 3.0-5.1 N code = K) Chloride (test code 109 mmol/L 98-107 H = CL) Carbon Dioxide (test 27 mmol/L 20-31 N code = CO2) Anion Gap (test code 7 mmol/L 5-15 N = GAP) Blood Urea Nitrogen 22 mg/dL 9-23 N (test code = BUN) Creatinine (test 0.93 mg/dL 0.55-1.02 N code = CREATT) Creatinine Clr Calc 86.12 mL/min Pharmacy (test code = CRCLPHA) Estimated Glomerular 89 See_Comment L Reporte d eGFR is Filt Rate (test code based o n the CKD-EPI = EGFR.XX) 2020 equation thatdoes not us e a race coefficien t. Additional information can be found at:[email or web address]_n cb_egf r_summary_flyer 5.pdf (kidney.org) [Automated mess age] The system [employer] generated this result transmitted ref erence range: >=90 ml/min/1.73m2. The reference range was not used to int erpret this result as normal/abnormal . BUN/Creatinine Ratio 24 ratio 10-20 H (test code = BCRATIO) Glucose (test code = 125 mg/dL 74-106 H GLU) Osmolality,Calculate 299.8 d (test code = OSMOC) Calcium (test code = 8.5 mg/dL 8.3-10.6 N CA) Manual Differential, [id number] 20:15:00 Test Item Value Reference Range Interpretation Comments Neutrophils % (Manual) 55 % (test code = NEUT%M) Lymphocytes % (Manual) 24.0 % 12.0-44.0 N (test code = LYMPH%M) Monocytes % (Manual) (test 15.0 % 0.0-11.0 H code = MONO%M) Eosinophils % (Manual) 6 % (test code = EOS%M) Neutrophils # (Manual) 1.9 x10 3/uL 1.6-7.4 N (test code = NEUT#M) Lymphocytes # (Manual) 0.8 x10 3/uL 0.5-4.6 N (test code = LYMPH#M) Monocytes # (Manual) (test 0.5 x10 3/uL 0.0-1.2 N code = MONO#M) Eosinophils # (Manual) 0.204 (test code = EOS#M) Platelet Estimate (test Adequate Normal code = PLTEST) Platelet Morphology Comment Normal Morphology Normal (test code = PLTCOMM) RBC Morphology (test code = Normal Morphology Normal RM) UA, Urinalysis Rflx [id number] 11:10:00 Test Item Value Reference Range Interpretation Comments Color,Urine (test code = UCOL) Yellow Yellow Clarity,Urine (test code = Clear Clear UCLAR) Ph, Urine (test code = UPH) 5.5 5.0-9.0 N Specific [place],Urine (test 1.020 1.005-1.030 N code = USG) Blood,Urine (test code = UBLD) Negative mg/dL Negative Protein,Urine (test code = Negative mg/dL Negative UPRO) Glucose,Urine (UA) (test code Negative mg/dL Negative = UGLU) Ketones,Urine (test code = Negative mg/dL Negative UKET) Nitrate,Urine (test code = Negative Negative UNIT) Bilirubin,Urine (test code = Negative mg/dL Negative UBIL) Urobilinogen,Urine (test code 0.2 E.U./dL Normal = UURO) Leukocyte Esterase,Urine (test Negative mg/dL Negative code = ULEU) Complete Blood Count Auto [id number] 11:45:00 Test Item Value Reference Range Interpretation Comments White Blood Count (test code = 5.2 x10 3/uL 4.4-10.5 N WBCT) Red Blood Count (test code = 3.86 x10 6/uL 4.10-5.70 L RBC) Hemoglobin (test code = HGBT) 11.7 g/dL 13.4-17.4 L Hematocrit (test code = HCTT) 36.0 % 38.7-52.0 L Mean Corpuscular Volume (test 93.30 fL 80.00-100.00 N code = MCV) Mean Corpuscular Hemoglobin 30.3 pg 27.0-32.5 N (test code = MCH) Mean Corpuscular HGB Conc 32.50 g/dL 32.00-37.50 N (test code = MCHC) RDW Coefficient of Variation 13.6 % 11.5-14.5 N (test code = RDWCV) Platelet Count (test code = 103.0 x10 3/uL 140.0-440.0 L PLTT) Mean Platelet Volume (test 11.3 fL code = MPV) Immature Granulocytes % (Auto) 0.2 % 0.0-5.0 N (test code = IMMGRAN%) Neutrophils % (Auto) (test 51.2 % 36.0-70.0 N code = NE%) Lymphocytes % (Auto) (test 28.9 % 12.0-44.0 N code = LY%) Monocytes % (Auto) (test code 15.6 % 0.0-11.0 H = MO%) Eosinophils % (Auto) (test 3.5 % 0.0-7.0 N code = EO%) Basophils % (Auto) (test code 0.6 % 0.0-2.0 N = BA%) Immature Granulocytes # (Auto) 0.01 x10 3/uL (test code = IMMGRAN#) Neutrophils # (Auto) (test 2.7 x10 3/uL 1.6-7.4 N code = NE#) Lymphocytes # (Auto) (test 1.50 x10 3/uL 0.50-4.60 N code = LY#) Monocytes # (Auto) (test code 0.81 x10 3/uL 0.00-1.20 N = MO#) Eosinophils # (Auto) (test 0.18 x10 3/uL 0.00-0.74 N code = EO#) Basophils # (Auto) (test code 0.03 x10 3/uL 0.00-0.21 N = BA#) nRBC Abs (test code = NRBCA) 0 nRBC Pct (test code = NRBCP) 0 % Basic Metabolic [id number] 11:45:00 Test Item Value Reference Range Interpretation Comments SODIUM (test code = NA) 139.0 mmol/L 136.0-145.0 N Potassium,K (test code = K) 4.2 mmol/L 3.0-5.1 N Chloride (test code = CL) 104 mmol/L 98-107 N Carbon Dioxide (test code = CO2) 32 mmol/L 20-31 H Anion Gap (test code = GAP) 3 mmol/L 5-15 L Blood Urea Nitrogen (test code = 20 mg/dL 9-23 N BUN) Creatinine (test code = CREATT) 0.91 mg/dL 0.55-1.02 N Creatinine Clr Calc Pharmacy 86.49 mL/min (test code = CRCLPHA) Estimated GFR ( Manisha > 60 mL/min/1.73m2 (test code = EGFRAA) Estimated GFR (Non Afr Manisha > 60 mL/min/1.73m2 (test code = EGFRNAA) BUN/Creatinine Ratio (test code 22 ratio 10-20 H = BCRATIO) Glucose (test code = GLU) 129 mg/dL 74-106 H Osmolality,Calculated (test code 292.1 = OSMOC) Calcium (test code = CA) 9.1 mg/dL 8.3-10.6 N URINE AND [id number] 14:33:00 Test Item Value Reference Range Interpretation Comments POC UA Color (test Yellow *NA*(06/05/21 code = POC UA Color) 9:33 AM) [id number] 14:33:00 Test Item Value Reference Range Interpretation Comments POC UA Turbidity (test Clear *NA*(06/05/21 code = POC UA Turbidity) 9:33 AM) [facility] [id number] 14:33:00 Test Item Value Reference Range Interpretation Comments POC UA SG (test code = POC UA SG) 1.010 1 [facility] [id number] 14:33:00 Test Item Value Reference Range Interpretation Comments POC UA pH (test code = POC UA pH) 7.0 1 5.0-8.0 [facility] [id number] 14:33:00 Test Item Value Reference Range Interpretation Comments POC UA Prot (test code = POC Negative mg/dL UA Prot) [facility] [id number] 14:33:00 Test Item Value Reference Range Interpretation Comments POC UA Glu (test code = POC UA Negative mg/dL Glu) [facility] [id number] 14:33:00 Test Item Value Reference Range Interpretation Comments POC UA Ket (test code = POC UA Negative mg/dL Ket) [facility] AND [id number] 14:33:00 Test Item Value Reference Range Interpretation Comments POC UA Bili (test Negative *NA*(06/05/21 code = POC UA Bili) 9:33 AM) [facility] [id number] 14:33:00 Test Item Value Reference Range Interpretation Comments POC UA Bld (test code Negative *NA*(06/05/21 = POC UA Bld) 9:33 AM) [facility] AND [id number] 14:33:00 Test Item Value Reference Range Interpretation Comments POC UA Uro (test code = POC UA Uro) 0.2 0.1-1.0 [facility] AND [id number] 14:33:00 Test Item Value Reference Range Interpretation Comments POC UA Nit (test code Negative *NA*(06/05/21 = POC UA Nit) 9:33 AM) [facility] [id number] 14:33:00 Test Item Value Reference Range Interpretation Comments POC UA LeukEst (test Negative *NA*(06/05/21 code = POC UA LeukEst) 9:33 AM) [facility] [id number] 20:08:00 Test Item Value Reference Range Interpretation Comments POC UA Color (test Yellow *NA*(04/30/21 code = POC UA Color) 2:08 PM) [facility] [id number] 20:08:00 Test Item Value Reference Range Interpretation Comments POC UA Turbidity (test Clear *NA*(04/30/21 code = POC UA Turbidity) 2:08 PM) [facility] AND [id number] 20:08:00 Test Item Value Reference Range Interpretation Comments POC UA SG (test code = POC UA SG) 1.020 1 [facility] [id number] 20:08:00 Test Item Value Reference Range Interpretation Comments POC UA pH (test code = POC UA pH) 7.0 1 5.0-8.0 [facility] [id number] 20:08:00 Test Item Value Reference Range Interpretation Comments POC UA Prot (test code = POC Negative mg/dL UA Prot) [facility] AND [id number] 20:08:00 Test Item Value Reference Range Interpretation Comments POC UA Glu (test code = POC UA Negative mg/dL Glu) [facility] [id number] 20:08:00 Test Item Value Reference Range Interpretation Comments POC UA Ket (test code = POC UA Negative mg/dL Ket) [facility] [id number] 20:08:00 Test Item Value Reference Range Interpretation Comments POC UA Bili (test Negative *NA*(04/30/21 code = POC UA Bili) 2:08 PM) [facility] [id number] 20:08:00 Test Item Value Reference Range Interpretation Comments POC UA Bld (test code Negative *NA*(04/30/21 = POC UA Bld) 2:08 PM) [facility] [id number] 20:08:00 Test Item Value Reference Range Interpretation Comments POC UA Uro (test code = POC UA Uro) 0.2 0.1-1.0 [facility] [id number] 20:08:00 Test Item Value Reference Range Interpretation Comments POC UA Nit (test code Negative *NA*(04/30/21 = POC UA Nit) 2:08 PM) [facility] AND [id number] 20:08:00 Test Item Value Reference Range Interpretation Comments POC UA LeukEst (test Negative *NA*(04/30/21 code = POC UA LeukEst) 2:08 PM) [facility] H[id number] 00:50:00 Test Item Value Reference Range Interpretation Comments MPV (test code = MPV) 9.9 7.4-10.4 N [id number] 00:50:00 Test Item Value Reference Range Interpretation Comments MCH (test code = MCH) 32.0 pg 27.0-31.0 H [facility]ieHaxikwnWQOYKQKPJR3636-29-32 00:50:00 Test Item Value Reference Range Interpretation Comments MCV (test code = MCV) 95.9 80.0-94.0 H [id number] 00:50:00 Test Item Value Reference Range Interpretation Comments Monocytes (test code = Monocytes) 12.0 2.0-12.0 N [facility]ieGyphesjXPFKRIPJQK6437-26-74 00:50:00 Test Item Value Reference Range Interpretation Comments Lymphocytes (test code = Lymphocytes) 30.1 20.0-40.0 N [id number] 00:50:00 Test Item Value Reference Range Interpretation Comments Eosinophils (test code = Eosinophils) 3.5 <=4.0 N [facility]ieJvsvvbyVDACNWXRKY7753-73-03 00:50:00 Test Item Value Reference Range Interpretation Comments Segs-Bands # (test code = Segs-Bands #) 4.5 1.5-8.1 N [facility]ieCdbxpoqLVFKKOVCIK7669-04-78 00:50:00 Test Item Value Reference Range Interpretation Comments Basophils (test code = Basophils) 0.5 <=1.0 N [facility]ieUfdbqziZRLXDHNVAS3738-96-63 00:50:00 Test Item Value Reference Range Interpretation Comments Macrocyte (test code = 1+ *ABN*(01/23/2012 A Macrocyte) 18:50:00) [id number] 00:50:00 Test Item Value Reference Range Interpretation Comments Monocytes # (test code = Monocytes #) 1.0 <=0.8 H [facility]ieXmkbpqkOWFJAMQNIC7266-04-14 00:50:00 Test Item Value Reference Range Interpretation Comments Lymphocytes # (test code = Lymphocytes 2.5 1.0-5.5 N #) [facility]ieCyvnayhINSVURZTYZ2155-28-00 00:50:00 Test Item Value Reference Range Interpretation Comments Basophils # (test code = Basophils #) 0.0 <=0.2 N [facility]ieTwysbxuVAGJRHDWZN6291-20-89 00:50:00 Test Item Value Reference Range Interpretation Comments Eosinophils # (test code = Eosinophils 0.3 <=0.5 N #) [facility]ieGhqxyurRBFMCZDXXF3089-80-47 00:50:00 Test Item Value Reference Range Interpretation Comments Segs (test code = Segs) 53.9 45.0-75.0 N [facility]MEYVVIMN4128-94-14 00:50:00 Test Item Value Reference Range Interpretation Comments eGFR (test code = eGFR) 94 [facility]AtwjwzvXBVDGQRHX6285-08-27 00:50:00 Test Item Value Reference Range Interpretation Comments Albumin Lvl (test code = Albumin Lvl) 3.8 3.5-5.0 N [facility]NdvacjhHOVHMONNP0395-06-10 00:50:00 Test Item Value Reference Range Interpretation Comments Chloride Lvl (test code = Chloride Lvl) 104 95-109 N [facility]entonBxvxnhdZWPAUFHFT3682-38-31 00:50:00 Test Item Value Reference Range Interpretation Comments Sodium Lvl (test code = Sodium Lvl) 142 135-145 N [facility]AmqpbwzIUNWUSRKU4544-28-05 00:50:00 Test Item Value Reference Range Interpretation Comments Creatinine Lvl (test code = Creatinine 0.9 0.5-1.4 N Lvl) [facility]entonNcaghgiVZLZOSZJU1072-11-91 00:50:00 Test Item Value Reference Range Interpretation Comments Potassium Lvl (test code = Potassium 4.5 3.5-5.1 N Lvl) [facility]LferwsuDVTXHQLYI8042-17-78 00:50:00 Test Item Value Reference Range Interpretation Comments Calcium Lvl (test code = Calcium Lvl) 9.0 8.5-10.5 N [facility]entonCjhhtzyMKGJVGGLP4596-92-91 00:50:00 Test Item Value Reference Range Interpretation Comments CO2 (test code = CO2) 28 24-32 N [facility]entonZgqketcWQKXFQHRJ3348-46-52 00:50:00 Test Item Value Reference Range Interpretation Comments BUN (test code = BUN) 21 7-22 N [facility]entonGlhujhpVFONVTKWO4501-83-93 00:50:00 Test Item Value Reference Range Interpretation Comments Glucose Lvl (test code = Glucose Lvl) 93 70-99 N [facility]FxxmfjhYEQKMDFER2627-48-40 00:50:00 Test Item Value Reference Range Interpretation Comments ALT (test code = ALT) 25 <=65 N [facility]entonOgtyzjaJEIZHVXAF0631-83-29 00:50:00 Test Item Value Reference Range Interpretation Comments AST (test code = AST) 19 <=37 N [facility]entonJdflrrgICITNPCLM6480-39-56 00:50:00 Test Item Value Reference Range Interpretation Comments Bili Total (test code = Bili Total) 0.4 0.2-1.3 N [facility]entonVlihkwxQGPCZQMRH3122-46-06 00:50:00 Test Item Value Reference Range Interpretation Comments Alk Phos (test code = Alk Phos) 65 39-136 N [facility]entonIiaoawjETQZXMIZX2151-86-97 00:50:00 Test Item Value Reference Range Interpretation Comments Total Protein (test code = Total 7.6 6.4-8.4 N Protein) [facility]entonLgqaodeJDESIMHES7879-00-21 00:50:00 Test Item Value Reference Range Interpretation Comments AGAP (test code = AGAP) 14.5 10.0-20.0 N [facility]entonAepkjinNYKHHASAE9871-84-09 00:50:00 Test Item Value Reference Range Interpretation Comments B/C Ratio (test code = B/C Ratio) 23 6-25 N [facility]entonTfmjjcxHHZJAXNTX4903-76-50 00:50:00 Test Item Value Reference Range Interpretation Comments A/G Ratio (test code = A/G Ratio) 1.0 0.7-1.6 N [facility]entonKxcjyhbYDKMESZHU7193-36-66 00:50:00 Test Item Value Reference Range Interpretation Comments Globulin (test code = Globulin) 3.8 2.0-4.0 N [facility]ieKvneabxLJFQYRNXCL8218-66-04 00:50:00 Test Item Value Reference Range Interpretation Comments Sed Rate (test code = Sed Rate) 58 <=15 H [facility]ieVqfvfojFZJHYWRGYQ8490-37-63 00:50:00 Test Item Value Reference Range Interpretation Comments Hgb (test code = Hgb) 12.1 14.0-18.0 L [facility]ieIslggjlAOUAQIBEPD8021-52-65 00:50:00 Test Item Value Reference Range Interpretation Comments Hct (test code = Hct) 36.2 42.0-54.0 L [facility]iePgaglnqIJNSXMVYHG9306-63-50 00:50:00 Test Item Value Reference Range Interpretation Comments WBC (test code = WBC) 8.3 3.7-10.4 N [facility]PaklsppIFSFVBFBTT8119-35-16 00:50:00 Test Item Value Reference Range Interpretation Comments RBC (test code = RBC) 3.77 4.70-6.10 L [facility]awBbpssynTTUDBCSIMC1939-91-00 00:50:00 Test Item Value Reference Range Interpretation Comments Platelet (test code = Platelet) 163 133-450 N [facility]awYesqtivFKOWPSUFTQ5951-91-77 00:50:00 Test Item Value Reference Range Interpretation Comments MCHC (test code = MCHC) 33.4 32.0-36.0 N [facility]awSzhidmvTOVUOSVHKY6289-19-46 00:50:00 Test Item Value Reference Range Interpretation Comments RDW (test code = RDW) 14.3 11.5-14.5 N Kimi reeves intraoperative [facility] [address] [place] [address] Patient Name: Ming Fernando Medical Record#: [id number] Address: [address] [place] [address] City/State/Zip: [place] [address]: Ethan Naidu MD Insurance: [facility] Medicare Advantag e /Age/Sex: 1955/66/M Self Pay Admit/Reg Date: 10/04/[address]: Ethan Naidu MD Location: [facility]/ PCP: Alyce Tay MD Date of Service: 10/04/21 Order (s): US guide intraoperative CPT Code: 13764 Report Number: [id number] Reason for Exam: MALIGNANT PROSTATE EXAMINATION: US guide intraoperative CLINICAL INDICATION: Male, 66 years old with MALIGNANT PROSTATE. Procedural image guidance is performed. COMPARISON: None TECHNIQUE: Grayscale sonographic images were obtained for procedure planning and guidance. FINDINGS: Ultrasound guidance was provided by the cytogenetics technologist. The submitted images show gold seed placement x3. Please see the operative note for full details. IMPRESSION: Sonographic services as described above. Electronically signed by: Eugenio Turner MD 10/04/2021 11:03 AM CDT Dictated By: Eugenio Turner MD 10/04/21 1014 Signed By: Eugenio Turner MD 10/04/21 1105 TD/TT: 10/04/21 1014 Tech: [id number] cc: MANOJ; ADRIA* Ethan Naidu MD; Alyce Tay MDEKG Electrocardiogram [facility] [address] [place] [address] Patient Name: Ming Fernando Medical Record#: [id number] Address: [address] [place] [address] City/State/Zip: [place] [address]: Ethan Naidu MD Insurance: [employer] Medicare Advantag e /Age/Sex: 1955/66/M Self Pay Admit/Reg Date: 09/28/[address]: Ethan Naidu MD Location: [facility]/ PCP: Alyce Tay MD Date of Service: 09/28/21 Order (s): EKG Electrocardiogram CPT Code: 59735 Report Number: [id number] Reason for Exam: pre op testing Sinus rhythm Borderline left axis deviation ST elevation, consider inferior injury Summary: Abnormal ECG Dictated By: Kunal Martinez MD 09/28/21 1208 Signed By: Kunal Martinez MD 09/28/21 1416 TD/TT: 09/28/21 1208 Tech: [id number] cc: MANOJ; ADRIA* Ethan Naidu MD; Alyce Tay MD
--- NOTE | 2023-01-03 11:37 | RAD REPORT ---
EXAM DESCRIPTION: CT - Spine Lumbar Wo Con - 01/03/2023 11:14 am CLINICAL HISTORY: Radiculopathy. worsening pain COMPARISON: No comparisons TECHNIQUE: Axial noncontrast CT imaging of the lumbar spine was performed with coronal and sagittal re-formatted images. All CT scans are performed using dose optimization technique as appropriate and may include automated exposure control or mA/KV adjustment according to patient size. FINDINGS: No acute lumbar spine fracture seen. No aggressive marrow pattern or malalignment. Paraspinal tissues are normal in thickness. No paraspinal abscess or hematoma seen. Cholelithiasis. Multilevel lumbar disc thinning is seen with small posterior osteophyte, most notable at L5-S1. Withi n these limitations, no high-grade canal stenosis suspected. Cholelithiasis. Sigmoid diverticulosis c judah. IMPRESSION: No acute lumbar spine abnormality. Mild lower lumbar spondylosis. Cholelithiasis.
--- NOTE | 2023-01-03 13:45 | EDPHYS ---
Physician Documentation [facility] Name: Chris Baker Age: 67 yrs Sex: Male : 1955 Arrival Date: 01/03/2023 Time: 10:38 Bed 15 Private MD: ED Physician Aaron Estes HPI: 01/03 17:57 This 67 yrs old Male presents to ER via Wheelchair with complaints of Back Pain. sb4 17:57 patient states he injured his lower back 3 days ago. he was seen here immediately sb4 after, no imaging was done. he received PO robaxin and was discharged with script. he states he has been taking it as prescribed with NSAIDs and has not had any relief. he feels like his pain has gotten worse. he states he has to sit all day while he works and it is aggravating the pain. Historical: - Allergies: 10:56 No Known Allergies; hb - PMHx: 10:56 Hypertensive disorder; Prostate Cacner; hb - PSHx: 10:56 knee replacement; Repair of inguinal hernia; hb - Immunization history:: Client reports receiving the 2nd dose of the Covid vaccine. - Social history:: Smoking status: Patient denies any tobacco usage or history of. ROS: 17:57 Constitutional: Negative for fever, chills, and weight loss, sb4 17:57 Back: Positive for pain at rest, pain with movement, 17:57 All other systems are negative, Exam: 17:57 Constitutional: This is a well developed, well nourished patient who is awake, alert, sb4 and in no acute distress. Head/Face: Normocephalic, atraumatic. Eyes: Extra-ocular motions intact. Periorbital areas with no swelling, redness, or edema. ENT: Mucous membranes moist. Back: No spinal tenderness. No costovertebral tenderness. Full range of motion. Skin: Warm, dry with normal turgor. Normal color with no rashes, no lesions, and no evidence of cellulitis. MS/ Extremity: Pulses equal, no cyanosis. Neurovascular intact. Full, normal range of motion. Neuro: Awake and alert, GCS 15, oriented to person, place, time, and situation. Motor strength 5/5 in all extremities. Sensory grossly intact. 17:57 Neuro: Exam negative for acute changes, focal neuro deficits, Vital Signs: 10:52 BP 146 / 84; Pulse 69; Resp 17; Temp 97.9; Pulse Ox 100% ; Weight 92.99 kg; Height 5 hb ft. 10 in. ; Pain 8/10; 13:42 BP 163 / 77; Pulse 71; Resp 18 S; Pulse Ox 100% on R/A; kc6 10:52 Body Mass Index 29.41 (92.99 kg, 177.8 cm) hb 10:52 Pain Scale: Adult hb MDM: 10:58 Patient medically screened. sb4 17:57 Differential diagnosis: Fracture ruptured disc, spinal injury, sprain, vertebral sb4 fracture. Data reviewed: vital signs, nurses notes, radiologic studies, and as a result, I will discharge patient. Care significantly affected by the following chronic conditions: Hypertension. Counseling: I had a detailed discussion with the patient and/or guardian regarding the historical points, exam findings, and any diagnostic results supporting the discharge/admit diagnosis, radiology results, the need for outpatient follow up, a orthopedic surgeon, to return to the emergency department if symptoms worsen or persist or if there are any questions or concerns that arise at home. 01/03 11:03 Order name: Spine Lumbar Wo Con; Complete Time: 11:40 EDMS Administered Medications: 13:56 Drug: HYDROcodone-acetaminophen PO 5 mg-325 mg 2 tabs PO once Route: PO; kc6 14:07 Follow up: Response: No adverse reaction; Pain is decreased; RASS: Alert and Calm (0) kc6 Disposition Summary: 01/03/23 13:45 Discharge Ordered Notes: Location: Home sb4 Problem: an ongoing problem sb4 Symptoms: have improved sb4 Condition: Stable sb4 Diagnosis - Strain of muscle, fascia and tendon of lower back sb4 Followup: sb4 - With: Emergency Department - When: As needed - Reason: Recheck today's complaints, Re-evaluation by your physician Discharge Instructions: - Discharge Summary Sheet sb4 - Low Back Sprain or Strain Rehab sb4 Forms: - Medication Reconciliation Form sb4 - Thank You Letter sb4 - Antibiotic Education sb4 - Prescription Opioid Use sb4 - Patient Portal Instructions sb4 - Leadership Thank You Letter sb4 Prescriptions: - acetaminophen-codeine 300-30 mg Oral tablet - take 1 tablet ORAL route every 4 to 6 hours as needed for pain; 13 tablet; sb4 Refills: 0, Product Selection Permitted - Medrol (Raj) 4 mg Oral Tablets, Dose Pack - take 1 tablet ORAL route as directed - follow package instructions; 1 packet; sb4 Refills: 0, Product Selection Permitted Signatures: Dispatcher [employer] Kathy Wong, RN RN Keeley Mccurdy RN RN kc6 Nancy Sparks, FADUMO THORNE sb4
--- NOTE | 2023-01-03 13:45 | ER ---
Nurse's Notes [facility] Name: Chris Baker Age: 67 yrs Sex: Male : 1955 Arrival Date: 01/03/2023 Time: 10:38 Bed 15 Private MD: Diagnosis: Strain of muscle, fascia and tendon of lower back Presentation: 01/03 10:52 Chief complaint: Patient states: Low back pain, seen here 3 days ago, has been taking hb the muscle relaxants, pain is worse. "Muscle relaxants are not working". Pt states he sits all day for work. Coronavirus screen: Vaccine status: Patient reports receiving the 2nd dose of the covid vaccine. Ebola Screen: Patient denies travel to an Ebola-affected area in the 21 days before illness onset. Initial Sepsis Screen: Does the patient meet any 2 criteria? No. Patient's initial sepsis screen is negative. Does the patient have a suspected source of infection? No. Patient's initial sepsis screen is negative. Risk Assessment: Do you want to hurt yourself or someone else? Patient reports no desire to harm self or others. Onset of symptoms was December 2022. 10:52 Method Of Arrival: Wheelchair hb 10:52 Acuity: AIMEE 3 hb Historical: - Allergies: 10:56 No Known Allergies; hb - PMHx: 10:56 Hypertensive disorder; Prostate Cacner; hb - PSHx: 10:56 knee replacement; Repair of inguinal hernia; hb - Immunization history:: Client reports receiving the 2nd dose of the Covid vaccine. - Social history:: Smoking status: Patient denies any tobacco usage or history of. Screenin:41 [facility] ED Fall Risk Assessment (Adult) History of falling in the last 3 months, kc6 including since admission No falls in past 3 months (0 pts) Confusion or Disorientation No (0 pts) Intoxicated or Sedated No (0 pts) Impaired Gait Yes (1 pt) Mobility Assist Device Used Yes (1 pt) Altered Elimination No (0 pt) Score/Fall Risk Level 0 - 2 = Low Risk. Abuse screen: Denies threats or abuse. Denies injuries from another. Nutritional screening: No deficits noted. Tuberculosis screening: No symptoms or risk factors identified. Assessment: 13:42 General: Appears in no apparent distress. comfortable, Behavior is calm, cooperative, kc6 appropriate for age. Pain: Complains of pain in back. Neuro: Level of Consciousness is awake, alert, obeys commands, Oriented to person, place, time, situation, Appropriate for age. Cardiovascular: Capillary refill < 3 seconds. Respiratory: Airway is patent Trachea midline Respiratory effort is even, unlabored, Respiratory pattern is regular, symmetrical. GI: No signs and/or symptoms were reported involving the gastrointestinal system. : No signs and/or symptoms were reported regarding the genitourinary system. EENT: No signs and/or symptoms were reported regarding the EENT system. Derm: No signs and/or symptoms reported regarding the dermatologic system. Skin is intact, is healthy with good turgor, Skin is pink, warm \\T\\ dry. Musculoskeletal: No signs and/or symptoms reported regarding the musculoskeletal system. Circulation, motion, and sensation intact. Capillary refill < 3 seconds, Range of motion: intact in all extremities. Vital Signs: 10:52 BP 146 / 84; Pulse 69; Resp 17; Temp 97.9; Pulse Ox 100% ; Weight 92.99 kg; Height 5 hb ft. 10 in. ; Pain 8/10; 13:42 BP 163 / 77; Pulse 71; Resp 18 S; Pulse Ox 100% on R/A; kc6 10:52 Body Mass Index 29.41 (92.99 kg, 177.8 cm) hb 10:52 Pain Scale: Adult hb ED Course: 10:43 Patient arrived in ED. ts1 10:50 Nancy Sparks PA-C is PHCP. sb4 10:50 Aaron Estes MD is Attending Physician. sb4 10:56 Triage completed. hb 10:57 Arm band placed on left wrist. hb 11:13 Spine Lumbar Wo Con In Process Unspecified. EDMS 13:37 Keeley Banks, ANJEL is Primary Nurse. kc6 13:42 Patient has correct armband on for positive identification. Bed in low position. Call kc6 light in reach. Side rails up X 1. Adult w/ patient. Client placed on continuous cardiac and pulse oximetry monitoring. NIBP monitoring applied. 14:07 No provider procedures requiring assistance completed. Patient did not have IV access kc6 during this emergency room visit. Administered Medications: 13:56 Drug: HYDROcodone-acetaminophen PO 5 mg-325 mg 2 tabs PO once Route: PO; kc6 14:07 Follow up: Response: No adverse reaction; Pain is decreased; RASS: Alert and Calm (0) kc6 Medication: 14:08 VIS not applicable for this client. kc6 Outcome: 13:45 Discharge ordered by . dinesh 14:08 Discharged to home ambulatory, with family, kc6 14:08 Condition: stable 14:08 Discharge instructions given to patient, family, Instructed on discharge instructions, follow up and referral plans. medication usage, Demonstrated understanding of instructions, follow-up care, medications, Prescriptions given X 2, 14:08 Patient left the ED. kc6 Signatures: Dispatcher [employer] EDMS Kathy Suarez RN RN Keeley Mccurdy RN RN kc6 Nancy Sparks, PA-C PA-C [email or web address] Ashia Gong PAS PAS ts1
[2023-01-03] MEDS ORDERED: HYDROCODONE/APAP 5/325 MG TAB ONE (14:07)
[2023-01-03 14:36] VITALS: TEMP 97.9; O2SAT 100
[2023-01-03 14:37] VITALS: BP 163/77
== END 2023-01-03 14:08 | disposition home or self-care (01) ==
LOC: ER 10:38
DX: S39.012A Strain of muscle, fascia and tendon of lower back, initial encounter (principal); X58.XXXA Exposure to other specified factors, initial encounter; I10 Essential (primary) hypertension; C61 Malignant neoplasm of prostate; Z96.659 Presence of unspecified artificial knee joint
CPT/HCPCS: 72131; 99283

== ENCOUNTER 2023-08-19 13:55 | Emergency (ER) | payer OTHER ==
[2023-08-19 14:22] LABS: Absolute Eosinophils 0.1 K/uL (0-0.5); Absolute Lymphocytes (CBC) 1.9 K/uL (0.7-4.9); Absolute Monocytes 0.6 K/uL (0.1-1.3); Absolute Neutrophil 1.8 K/uL (1.8-8.0); Basophils % 0.9 % (0-1.3); Eosinophils % 1.7 % (0-4.4); Hematocrit 36.9 % (39.6-49.0); Hemoglobin 12.1 g/dL (13.6-17.9); MCH 30.2 pg (27.0-35.0); MCHC 32.9 g/dL (32.0-36.0); MCV 91.7 fL (80-100); MPV 7.5 fL (7.6-11.3); Monocytes % 12.9 % (3.3-12.3); Neutrophils % 41.5 % (41.7-73.7); Nucleated Red Blood Cells % 0.1 % (0-0); Platelets 236 thou/uL (152-406); RBC Red Blood Cell Count 4.02 M/uL (4.33-5.43); Red Cell Distribution Width 15.1 % (12.1-15.2)
[2023-08-19 14:49] LABS: Anion Gap 8.8 mEq/L (5.0-15.0); Potassium 3.8 mEq/L (3.5-5.1)
--- NOTE | 2023-08-19 17:19 | RAD REPORT ---
EXAM DESCRIPTION: CT - Head C Spine Cap W Con - 08/19/2023 3:06 pm CLINICAL HISTORY: TRAUMA COMPARISON: Spine Lumbar Wo Con dated 01/03/2023 TECHNIQUE: Head and cervical spine CT images were obtained without IV contrast. Chest, abdomen, and pelvis CT images were obtained following intravenous administration of iodinated contrast. Multiplana r reformats were generated and reviewed. All CT scans are performed using dose optimization technique as appropriate and may include automated exposure control or mA/KV adjustment according to patient size. FINDINGS: CT HEAD: No intracranial hemorrhage, mass effect, or edema. No evidence of acute territorial infarct. No midli ne shift or abnormal fluid collection. The ventricles are normal in caliber and configuration for age . Basal cisterns are patent. Mastoid aircells and paranasal sinuses are clear. No acute skull fractur e. CT CERVICAL SPINE: No acute cervical spine fracture or subluxation. Bridging osteophytes across C4-5 and C5-6 levels. Mu ltilevel cervical spine degenerative changes most pronounced at C3-4 and C6-7 levels, were there is b ilateral neural foraminal narrowing. Vertebral body heights are well maintained. Facet joints are nor mal in alignment. No hyperattenuating canal hematoma. Prevertebral and paraspinous soft tissues are u nremarkable. CT CHEST: No pneumothorax, pulmonary contusion or pleural fluid collection. Incidentally noted peripheral right lower lobe 5 mm rounded nodule, likely benign given size and morphology. No mediastinal hematoma and the aorta and pulmonary arteries are unremarkable. No chest will mass or abnormal axillary finding. No displaced rib fracture or other significant bony finding. CT ABDOMEN/ PELVIS: No evidence of traumatic injury to solid abdominal viscera. Gallbladder shows small calcific stone ne ar the neck. Bilateral small inguinal hernias containing fat. Mild colonic diverticulosis. No bowel i njury or significant finding. No free air, free fluid or abnormal fat stranding. No urinary bladder a bnormality. No significant bony finding. IMPRESSION: No acute traumatic findings. Incidental findings as above.
--- NOTE | 2023-08-19 17:39 | ER ---
Nurse's Notes [facility] Name: Chris Baker Age: 68 yrs Sex: Male : 1955 Arrival Date: 08/19/2023 Time: 13:55 Bed 18 Private MD: Diagnosis: Fall on same level, unspecified;Alcohol abuse with intoxication;Anemia, unspecified;Bilateral inguinal hernia, without obstruction or gangrene, not specified as recurrent;Solitary pulmonary nodule Presentation: 08/18 14:01 Chief complaint: EMS states: VSS. C-collar and BB en route. Fingerstick 119. 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 + ETOH daily. B knee pains and back pain. Coronavirus screen: Client denies travel out of the [place] in the last 14 days. At this time, the client does not indicate any symptoms associated with coronavirus-19. Ebola Screen: Patient denies travel to an Ebola-affected area in the 21 days before illness onset. Initial Sepsis Screen: Does the patient meet any 2 criteria? No. Patient's initial sepsis screen is negative. Does the patient have a suspected source of infection? No. Patient's initial sepsis screen is negative. Risk Assessment: Do you want to hurt yourself or someone else? Patient reports no desire to harm self or others. Onset of symptoms was August 19, 2023. 14:01 Method Of Arrival: EMS ll1 14:01 Acuity: AIMEE 3 ll1 14:30 Care prior to arrival: Cervical collar in place. me1 Historical: - Allergies: 14:03 No Known Allergies; ll1 - PMHx: 14:03 Hypertensive disorder; Prostate Cacner; Hypothyroidism; Alcoholism; ll1 - Immunization history:: Adult Immunizations up to date. - Infectious Disease History:: Denies. - Social history:: Smoking status: Patient denies any tobacco usage or history of. Screenin:26 [facility] ED Fall Risk Assessment (Adult) History of falling in the last 3 months, me1 including since admission Yes- fall prone (multiple falls) (3 pts) Confusion or Disorientation No (0 pts) Intoxicated or Sedated Yes (3 pts) Impaired Gait Yes (1 pt) Mobility Assist Device Used No (0 pt) Altered Elimination No (0 pt) Score/Fall Risk Level 0 - 2 = Low Risk Maintained a safe environment, Provided non-skid footwear, Hourly rounding (assess needs \\T\\ fall precautionary measures) done. Abuse screen: Denies threats or abuse. Nutritional screening: No deficits noted. Tuberculosis screening: No symptoms or risk factors identified. 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 + ETOH daily. B knee pains and back pain. General: Smells of alcohol. Pain: Complains of pain in right leg and left leg and lumbar area Pain does not radiate. Pain currently is 7 out of 10 on a pain scale. Quality of pain is described as aching, Pain began suddenly, Is continuous. Neuro: Level of Consciousness is awake, alert, obeys commands, Oriented to person, place, time, situation, Appropriate for age. Cardiovascular: Capillary refill < 3 seconds Patient's skin is warm and dry. Respiratory: Airway is patent Trachea midline Respiratory effort is even, unlabored, Respiratory pattern is regular, symmetrical. GI: No signs and/or symptoms were reported involving the gastrointestinal system. : No signs and/or symptoms were reported regarding the genitourinary system. EENT: No signs and/or symptoms were reported regarding the EENT system. Derm: Skin is healthy with good turgor, Skin is pink, warm \\T\\ dry. Bruising that is dark purple, on left arm. Musculoskeletal: Reports pain in right leg and left leg and lumbar area. Injury Description: fell several times trying to get into his apartment. 15:56 General: Patient removed C collar, Dr Rodrigez aware. . me1 Psych: 14:26 [place] Suicide Severity Screening: In the past month, have you wished you were me1 or wished you could go to sleep and not wake up? Patient responds "No." "In the past month, have you actually had any thoughts of killing yourself?" Patient responds "no." "In your lifetime, have you ever done anything, started to do anything, or prepared to do anything to end your life?" Patient responds "no.". Subjective: Patient's mood is angry, irritable, Delusions are denied, Hallucinations are denied Having thoughts of no SI or HI. Objective: Patient is belligerent, Speech is normal, Affect is inappropriate. Interventions: none. Safety Checks: N/a. Patient uses daily. Last use was 30 minutes ago. Commitment: n/a. Vital Signs: 14:01 Pulse 75; Resp 21; Temp 97.5; Pulse Ox 100% ; Weight 98.43 kg; Height 5 ft. 10 in. ; ll1 Pain 5/10; 14:16 BP 148 / 70; Pulse 71; Resp 13; Pulse Ox 99% on R/A; me1 15:00 BP 149 / 79; Pulse 93; Resp 21; Pulse Ox 98% on R/A; me1 16:00 BP 152 / 82; Pulse 82; Resp 20; Pulse Ox 100% on R/A; me1 17:00 BP 147 / 74; Pulse 86; Resp 20; Pulse Ox 100% on R/A; me1 14:01 Body Mass Index 31.14 (98.43 kg, 177.8 cm) 1 14:01 Pain Scale: Adult ll1 ED Course: 14:01 Patient arrived in ED. ll1 14:02 Paddy Rodrigez DO is Attending Physician. ms3 14:03 Triage completed. 1 14:04 Arm band placed on Patient placed in an exam room, on a stretcher. 1 14:07 Flora Turner, ANJEL is Primary Nurse. nd1 14:21 Basic Metabolic Panel Sent. nd1 14:21 CBC with Diff Sent. nd1 14:21 No provider procedures requiring assistance completed. Initial lab(s) drawn, [place], [facility] [place]. Inserted saline lock: 22 gauge in left antecubital area, using aseptic technique. 14:26 Patient has correct armband on for positive identification. Bed in low position. Call me1 light in reach. Side rails up X2. Provided Education on: POC. Verbalized understanding. . 15:08 CT Traumagram (Head C Spine CAP W Con) In Process Unspecified. EDMS 15:53 IV discontinued, intact, bleeding controlled, No redness/swelling at site. Pressure me1 dressing applied, taken out by patient. 17:38 Harry Goldberg MD is Referral Physician. ms3 17:40 Zachary Emanuel MD is Referral Physician. ms3 17:40 Ponce Hartley DO is Referral Physician. ms3 Administered Medications: No medications were administered Medication: 14:26 VIS not applicable for this client. me1 Outcome: 17:39 Discharge ordered by MD. ms3 17:46 Discharged to home ambulatory, with family, me1 17:46 Condition: stable 17:46 Discharge instructions given to patient, Instructed on discharge instructions, follow up and referral plans. Demonstrated understanding of instructions, follow-up care, 17:47 Patient left the ED. me1 Signatures: Dispatcher [employer] Jamal Ramírez, RN RN ll1 Paddy Rodrigez DO DO ms3 Flora Turner, ANJEL RN me1 Corrections: (The following items were deleted from the chart) 14:06 14:01 Resp 18bpm; Temp 97.5F; 98.43 kg; Height 5 ft. 10 in.; BMI: 31.1; Pain 5/10, ll1 Adult; ll1 14:26 14:01 Chief complaint: Patient states: Kept falling while trying to get into his me1 appointment just BOX CAR CHECK[employer]. + ETOH daily. B knee pains. ll1
--- NOTE | 2023-08-19 17:39 | EDPHYS ---
Physician Documentation [facility] Name: Chris Baker Age: 68 yrs Sex: Male : 1955 Arrival Date: 08/19/2023 Time: 13:55 Bed 18 Private MD: ED Physician Paddy Rodrigez HPI: 08/18 14:08 This 68 yrs old Male presents to ER via EMS with complaints of ETOH Abuse, Fall. ms3 14:08 68-year-old male with past medical history of hypertension, prostate cancer, ms3 hypothyroidism, alcoholism presents to the emergency department via [facility] status post multiple falls. Patient states he is having head, neck, back pain status post falls. He states "I'm so drunk I couldn't get in my house.". Historical: - Allergies: 14:03 No Known Allergies; ll1 - PMHx: 14:03 Hypertensive disorder; Prostate Cacner; Hypothyroidism; Alcoholism; ll1 - Immunization history:: Adult Immunizations up to date. - Infectious Disease History:: Denies. - Social history:: Smoking status: Patient denies any tobacco usage or history of. ROS: 14:08 Constitutional: Negative for fever, and chills. ms3 14:08 Respiratory: Negative for shortness of breath, cough, wheezing, and pleuritic chest pain, Abdomen/GI: Negative for abdominal pain, nausea, vomiting, diarrhea, and constipation, Skin: Negative for injury, rash, and discoloration, 14:08 Neck: Positive for Pain, 14:08 MS/extremity: Positive for pain, of the back, Exam: 14:08 Constitutional: This is a well developed, well nourished patient who is awake, alert, ms3 and in no acute distress. Head/Face: Normocephalic, atraumatic. Neck: Trachea midline, no cervical lymphadenopathy. Supple, full range of motion without nuchal rigidity, or vertebral point tenderness. No Meningismus. Chest/axilla: Normal chest wall appearance and motion. Nontender with no deformity. Cardiovascular: Regular rate and rhythm with a normal S1 and S2. No gallops, murmurs, or rubs. Normal PMI, no JVD. No pulse deficits. Respiratory: Lungs have equal breath sounds bilaterally, clear to auscultation and percussion. No rales, rhonchi or wheezes noted. No increased work of breathing, no retractions or nasal flaring. Abdomen/GI: Soft, non-tender, with normal bowel sounds. No distension or tympany. No guarding or rebound. No evidence of tenderness throughout. 14:08 Back: pain, that is mild, of the lumbar area, Vital Signs: 14:01 Pulse 75; Resp 21; Temp 97.5; Pulse Ox 100% ; Weight 98.43 kg; Height 5 ft. 10 in. ; ll1 Pain 5/10; 14:16 BP 148 / 70; Pulse 71; Resp 13; Pulse Ox 99% on R/A; me1 15:00 BP 149 / 79; Pulse 93; Resp 21; Pulse Ox 98% on R/A; me1 16:00 BP 152 / 82; Pulse 82; Resp 20; Pulse Ox 100% on R/A; me1 17:00 BP 147 / 74; Pulse 86; Resp 20; Pulse Ox 100% on R/A; me1 14:01 Body Mass Index 31.14 (98.43 kg, 177.8 cm) ll1 14:01 Pain Scale: Adult ll1 MDM: 14:03 Patient medically screened. ms3 14:08 Differential diagnosis: Contusion of Hematoma on Intracranial bleed- subdural, ms3 subarachnoid, intracerebral, Concussion cerebral contusion. 17:39 Data reviewed: vital signs, nurses notes, lab test result(s), radiologic studies, and ms3 as a result, I will discharge patient. Independent interpretation of the following test(s) in the Emergency Department CT Scan: My interpretation is CT Head without contrast images reviewed by me do not reveal ICH.. Counseling: I had a detailed discussion with the patient and/or guardian regarding the historical points, exam findings, and any diagnostic results supporting the discharge/admit diagnosis, lab results, radiology results, the need for outpatient follow up, to return to the emergency department if symptoms worsen or persist or if there are any questions or concerns that arise at home. Special discussion: I discussed with the patient/guardian in detail that at this point there is no indication for admission to the hospital. It is understood, however, that if the symptoms persist or worsen the patient needs to return immediately for re-evaluation. ED course: Discussed imaging results with patient. Patient to follow up with PMD in 2-3 days. All questions answered. Return precautions discussed to include worsening symptoms, or any other concerns. On re-evaluation patient is alert and oriented x4, nad, non-toxic, ambulatory in ED.. 08/18 14:02 Order name: Basic Metabolic Panel; Complete Time: 14:52 ms3 08/18 14:02 Order name: CBC with Diff; Complete Time: 14:52 ms3 08/18 14:02 Order name: CT Traumagram (Head C Spine CAP W Con); Complete Time: 17:22 ms3 08/18 14:02 Order name: Labs collected and sent; Complete Time: 14:24 ms3 Administered Medications: No medications were administered Disposition Summary: 08/19/23 17:39 Discharge Ordered Notes: Location: Home ms3 Condition: Stable ms3 Diagnosis - Fall on same level, unspecified ms3 - Alcohol abuse with intoxication ms3 - Anemia, unspecified ms3 - Bilateral inguinal hernia, without obstruction or gangrene, not specified as ms3 recurrent - Solitary pulmonary nodule ms3 Followup: ms3 - With: Harry Goldberg MD - When: 2 - 3 days - Reason: Recheck today's complaints Followup: ms3 - With: Zachary Emanuel MD - When: 2 - 3 days - Reason: Recheck today's complaints Followup: ms3 - With: Ponce Hartley DO - When: 2 - 3 days - Reason: Discharge Instructions: - Discharge Summary Sheet ms3 - Anemia ms3 - Fall Prevention in the Home, Adult ms3 - Inguinal Hernia, Adult, [id number] ms3 - Pulmonary Nodule ms3 Forms: - Medication Reconciliation Form ms3 - Antibiotic Education ms3 - Prescription Opioid Use ms3 - Patient Portal Instructions ms3 - Leadership Thank You Letter ms3 Signatures: Dispatcher [employer] Jamal Ramírez, RN RN ll1 Paddy Rodrigez DO DO ms3
[2023-08-19 18:20] VITALS: BP 147/74; TEMP 97.5; O2SAT 100
== END 2023-08-19 17:47 | disposition home or self-care (01) ==
LOC: ER 13:55
DX: F10.229 Alcohol dependence with intoxication, unspecified (principal); W18.30XA Fall on same level, unspecified, initial encounter; D64.9 Anemia, unspecified; K40.20 Bilateral inguinal hernia, without obstruction or gangrene, not specified as recurrent
CPT/HCPCS: 85025; 80048; 36415; 70450; 72125; 71260; 74177; 99285; Q9967

== ENCOUNTER 2023-08-29 09:41 | Day surgery (SDC) | payer OTHER ==
--- NOTE | 2023-08-29 11:20 | RAD REPORT ---
EXAM DESCRIPTION: CT - CTHCSPWOC - 08/29/2023 10:05 am CLINICAL HISTORY: TRAUMA COMPARISON: Head C Spine Cap W Con dated 08/19/2023 TECHNIQUE: Axial thin cut noncontrast CT images of the head were obtained. Axial thin cut noncontrast CT images of the cervical spine were obtained. Multiplanar reformatted images were generated and reviewed. All CT scans are performed using dose optimization technique as appropriate and may include automated exposure control or mA/KV adjustment according to patient size. FINDINGS: CT HEAD WITHOUT CONTRAST: No acute hemorrhage, hydrocephalus or extra-axial collection is identified. Frontal parasagittal ence phalomalacia, stable, suggesting sequelae of remote ischemia. Mild periventricular and deep white mat ter hypodensities, stable, and nonspecific, suggestive of chronic small vessel ischemic changes. No a reas of brain edema or midline shift. The paranasal sinuses and mastoids are clear.The calvarium is intact. CT CERVICAL SPINE WITHOUT CONTRAST: No fracture or subluxation. Multilevel degenerative changes with bridging anterior osteophytes at C4- C6 facet arthropathy contributing to degrees of neural foraminal narrowing most pronounced at C3-4 mo re so on the left.No prevertebral soft tissues swelling is identified. IMPRESSION: No acute traumatic intracranial or cervical spine findings. Chronic findings as above.
[2023-08-29] MEDS: CEFAZOLIN SODIUM 1 GM/VIAL ONE (11:35)
--- NOTE | 2023-08-29 11:43 | ER ---
Nurse's Notes [facility] Name: Chris Baker Age: 68 yrs Sex: Male : 1955 Arrival Date: 08/29/2023 Time: 09:41 Bed 14 Private MD: Diagnosis: Laceration to left pinna with cartilage involvement Presentation: 08/28 09:54 Chief complaint: EMS states: they were toned out for a fall. pt states he fell sometime kc6 last night but doesn't remember. unknown LOC. daughter states pt has been drinking daily for several weeks now. Coronavirus screen: At this time, the client does not indicate any symptoms associated with coronavirus-19. Ebola Screen: No symptoms or risks identified at this time. Initial Sepsis Screen: Does the patient meet any 2 criteria? No. Patient's initial sepsis screen is negative. Does the patient have a suspected source of infection? No. Patient's initial sepsis screen is negative. Risk Assessment: Do you want to hurt yourself or someone else? Patient reports no desire to harm self or others. Onset of symptoms was August 29, 2023. 09:54 Method Of Arrival: EMS: [facility] kc6 09:54 Acuity: AIMEE 3 kc6 Triage Assessment: 09:56 General: Appears in no apparent distress. comfortable, well groomed, well developed, kc6 Behavior is calm, cooperative, appropriate for age. Pain: Complains of pain in left ear. EENT: Ear canal clear on left ear. Neuro: Level of Consciousness is awake, alert, obeys commands, Oriented to person, place, time, situation, Appropriate for age. Cardiovascular: Capillary refill < 3 seconds. Respiratory: Airway is patent Trachea midline Respiratory effort is even, unlabored, Respiratory pattern is regular, symmetrical. GI: No signs and/or symptoms were reported involving the gastrointestinal system. : No signs and/or symptoms were reported regarding the genitourinary system. Derm: Skin is healthy with good turgor, Skin is pink, warm \T\ dry. Musculoskeletal: No signs and/or symptoms reported regarding the musculoskeletal system. Circulation, motion, and sensation intact. Capillary refill < 3 seconds, Range of motion: intact in all extremities. Injury Description: Laceration sustained to left ear is jagged, 0.5 to 2.5 cm long, not bleeding, was sustained 6-12 hours ago. no active bleeding noted at this time. Historical: - Allergies: 09:56 No Known Allergies; kc6 - PMHx: 09:56 Alcoholism; Hypertensive disorder; Hypothyroidism; Prostate Cacner; kc6 - PSHx: 09:56 knee replacement; Repair of inguinal hernia; kc6 - Immunization history:: Adult Immunizations unknown. - Infectious Disease History:: Denies. - Social history:: Smoking status: Patient denies any tobacco usage or history of. - Family history:: not pertinent. Screenin:58 [facility] ED Fall Risk Assessment (Adult) History of falling in the last 3 months, kc6 including since admission Yes- single mechanical fall (1 pt) Confusion or Disorientation No (0 pts) Intoxicated or Sedated Yes (3 pts) Impaired Gait No (0 pts) Mobility Assist Device Used No (0 pt) Altered Elimination No (0 pt) Score/Fall Risk Level 3 or more points = High Risk. Abuse screen: Denies threats or abuse. Denies injuries from another. Nutritional screening: No deficits noted. Tuberculosis screening: No symptoms or risk factors identified. Assessment: :58 Reassessment: please see triage. kc6 10:51 Reassessment: Patient appears in no apparent distress at this time. No changes from [facility] previously documented assessment. Patient and/or family updated on plan of care and expected duration. Pain level reassessed. Patient is alert, oriented x 3, equal unlabored respirations, skin warm/dry/pink. Vital Signs: 09:54 BP 126 / 71; Pulse 73; Resp 18 S; Temp 97.9(O); Pulse Ox 100% on R/A; Weight 94.35 kg kc6 (M); Height 5 ft. 10 in. (R); 10:51 BP 102 / 84; Pulse 61; Resp 15 S; Pulse Ox 100% on R/A; kc6 09:54 Body Mass Index 29.84 (94.35 kg, 177.8 cm) [facility] ED Course: 09:47 Patient arrived in ED. jr12 09:48 Lavelle Lyn MD is Attending Physician. ec2 09:54 Keeley Banks RN is Primary Nurse. kc6 09:56 Triage completed. kc6 09:56 Arm band placed on. kc6 09:58 Patient has correct armband on for positive identification. Bed in low position. Call kc6 light in reach. Side rails up X2. Adult w/ patient. Pulse ox on. NIBP on. Pillow given. 10:05 CT Head C Spine In Process Unspecified. EDMS 10:27 Assisted with urinal. aw1 11:41 Shira Davis MD is Hospitalizing Provider. rt 11:42 Inserted saline lock: 20 gauge in right antecubital area, using aseptic technique. aw1 11:52 No provider procedures requiring assistance completed. Patient admitted, IV remains in kc6 place. Administered Medications: No medications were administered Medication: 11:52 VIS not applicable for this client. kc6 Outcome: 11:42 Decision to Hospitalize by Provider. rt 11:52 Admitted to OR accompanied by nurse, via wheelchair, with chart, [facility] 11:52 Condition: stable 11:52 Instructed on the need for admit, 11:52 Patient left the ED. kc Signatures: Dispatcher [employer] Keeley Naqvi RN RN kc6 Lavelle Lyn MD MD rt Caryl Jessica aw1 Reyes Ro MD MD ec2 Maricel Burgos jr12 Corrections: (The following items were deleted from the chart) 11:10 09:56 General: Appears in no apparent distress. comfortable, well groomed, well kc6 developed, Behavior is calm, cooperative, appropriate for age, kc6
--- NOTE | 2023-08-29 11:43 | EDPHYS ---
Physician Documentation [facility] Name: Chris Baker Age: 68 yrs Sex: Male : 1955 Arrival Date: 08/29/2023 Time: 09:41 Bed 14 Private MD: ED Physician Lavelle Lyn HPI: 08/28 11:42 This 68 yrs old Male presents to ER via EMS with complaints of Fall Injury. rt 11:42 Patient presents to the ED with a fall. Patient cannot recall events around the fall. rt Daughter states that the patient is intoxicated. Patient sustained an injury to the left ear, causing laceration to the pinna. Denies other injury, other acute complaints, symptoms are moderate in severity, no other aggravating or alleviating factors.. Historical: - Allergies: 09:56 No Known Allergies; kc6 - PMHx: 09:56 Alcoholism; Hypertensive disorder; Hypothyroidism; Prostate Cacner; kc6 - PSHx: 09:56 knee replacement; Repair of inguinal hernia; kc6 - Immunization history:: Adult Immunizations unknown. - Infectious Disease History:: Denies. - Social history:: Smoking status: Patient denies any tobacco usage or history of. - Family history:: not pertinent. ROS: 11:42 Constitutional: Negative for fever, chills, and weight loss, Cardiovascular: Negative rt for chest pain, palpitations, and edema, MS/Extremity: Negative for injury and deformity, Neuro: Negative for headache, weakness, numbness, tingling, and seizure, 11:42 ENT: Positive for Laceration, Exam: 11:42 Constitutional: This is a well developed, well nourished patient who is awake, alert, rt and in no acute distress. Head/Face: Normocephalic, atraumatic. Chest/axilla: Normal chest wall appearance and motion. Nontender with no deformity. No lesions are appreciated. Cardiovascular: Regular rate and rhythm with a normal S1 and S2. No gallops, murmurs, or rubs. Normal PMI, no JVD. No pulse deficits. Respiratory: Lungs have equal breath sounds bilaterally, clear to auscultation and percussion. No rales, rhonchi or wheezes noted. No increased work of breathing, no retractions or nasal flaring. 11:42 ENT: Laceration to the left superior pinna, cartilage is lacerated, no active bleeding. Vital Signs: 09:54 BP 126 / 71; Pulse 73; Resp 18 S; Temp 97.9(O); Pulse Ox 100% on R/A; Weight 94.35 kg kc6 (M); Height 5 ft. 10 in. (R); 10:51 BP 102 / 84; Pulse 61; Resp 15 S; Pulse Ox 100% on R/A; kc6 09:54 Body Mass Index 29.84 (94.35 kg, 177.8 cm) kc6 MDM: 09:51 Patient medically screened. rt 11:42 Differential diagnosis: Laceration, intracranial hemorrhage. Data reviewed: vital rt signs, nurses notes, radiologic studies. Management of patient was discussed with the following: Insurance Assistant: Discussed with Dr. Davis, will repair in the operating room. Independent interpretation of the following test(s) in the Emergency Department CT Scan: My interpretation is No intracranial hemorrhage seen on interpretation of CT scan images. Care significantly affected by the following chronic conditions: Hypertension. Care significantly affected by the following Social Determinants of Health: Misuse of alcohol and/or drugs. 08/28 09:52 Order name: CT Head C Spine; Complete Time: 11:20 rt Administered Medications: No medications were administered Disposition Summary: 08/29/23 11:42 Hospitalization Ordered Notes: Hospitalization Status: Observation rt Provider: Shira Davis rt Location: Operating Room rt Condition: Stable rt Problem: new rt Symptoms: are unchanged rt Bed/Room Type: Standard rt Room Assignment: rt Diagnosis - Laceration to left pinna with cartilage involvement rt Discharge Instructions: - Discharge Summary Sheet hb Forms: - SBAR form hb - Medication Reconciliation Form rt - Leadership Thank You Letter rt Signatures: Dispatcher [employer] Keeley Naqvi, ANJEL RN kc6 Lavelle Lyn MD MD rt
[2023-08-29] MEDS: Ringers Lactate 1,000 ML IV ONE (11:55)
[2023-08-29] MEDS ORDERED: ONDANSETRON 4 MG/2 ML VIAL ONE (12:20)
[2023-08-29] MEDS ORDERED: propofoL 200 MG/20 ML VIAL IV ONE (12:20)
[2023-08-29] MEDS ORDERED: LIDOCAINE 2% MPF 5 ML VIAL ONE (12:21)
[2023-08-29] MEDS ORDERED: MIDAZOLAM HCL 2 MG/2 ML INJ ONE (12:21)
[2023-08-29] MEDS ORDERED: FENTANYL CITR 100 MCG/2 ML ONE (12:21)
[2023-08-29] MEDS: LIDOCAINE HCL/EPINEPHRINE 20 ML MDV ONE (12:44)
[2023-08-29] MEDS ORDERED: EPHEDRINE SULF 50 MG/ML VIAL ONE (12:57)
[2023-08-29 14:06] VITALS: O2SAT 98
[2023-08-29 15:07] VITALS: BP 123/70; TEMP 97
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
== END 2023-08-29 15:23 | disposition home or self-care (01) ==
LOC: ER 09:41 → DS 15:02
PROVIDERS: ATTEND Otolaryngology Facial Plastic Surgery
PROC: 09Q1XZZ Repair Left External Ear, External Approach (ICD-10-PCS; principal; 2023-08-29 13:15)
DX: S01.312A Laceration without foreign body of left ear, initial encounter (principal); W18.30XA Fall on same level, unspecified, initial encounter; Y93.9 Activity, unspecified; Y92.9 Unspecified place or not applicable; I10 Essential (primary) hypertension; E03.9 Hypothyroidism, unspecified; F10.229 Alcohol dependence with intoxication, unspecified; Z85.46 Personal history of malignant neoplasm of prostate
CPT/HCPCS: 70450; 72125; 99285; 13152; J2704; J2001; J2250; J3010; J2405; J7120; J0690